=== PATIENT | male | born 1935 | race Caucasian/White ===

== ENCOUNTER 2023-12-03 17:12 | Inpatient (IN) | payer OTHER, SELFPAY ==
[2023-12-03] VITALS (15 sets, daily range): BP systolic 94–154; BP diastolic 60–86; BMI 22.6
[2023-12-03 13:49] LABS: % Basophils 0.4 % (0-2); % Eosinophils 0.9 % (0-6); % Immature Granulocytes 0.4 % (0-0.5); % Lymphocytes 12.1 % (20.5-51.1); % Monocytes 7.4 % (1.7-9.3); % Neutrophils 78.8 % (42.2-75.2); Absolute Eosinophils 0.1 10^3/uL (0-0.7); Absolute Lymphocytes 1.2 10^3/uL (1.2-3.4); Absolute Monocytes 0.8 10^3/uL (0.1-0.6); Absolute Neutrophils 8.1 10^3/uL (1.4-6.5); Hematocrit 43.4 % (39.0-52.0); Hemoglobin 14.5 g/dL (13.0-18.0); Mean Corp Hgb Conc. 33.4 g/dL (33.0-37.0); Mean Corpuscular Hgb 32.9 pg (27.0-31.0); Mean Corpuscular Volume 98.4 fL (80.0-94.0); Mean Platelet Volume 11.5 fL (7.4-10.4); Nucleated Red Blood Cells % 0 % (-); Platelet Count 197 10^3/uL (130-400); Red Blood Cell Count 4.41 10^6/uL (4.70-6.10); Red Cell Dist. Width 14.6 % (11.5-14.5); White Blood Cell Count 10.3 10^3/uL (4.8-10.8)
[2023-12-03 14:05] LABS: ALT (SGPT) 18 U/L (0-50); AST (SGOT) 27 U/L (17-59); Albumin 3.9 g/dl (3.5-5.0); Alkaline Phosphatase 101 U/L (38-126); Blood Urea Nitrogen 21 mg/dl (9-20); Carbon Dioxide 28 mmol/L (22-30); Chloride 105 mmol/L (98-107); Glucose 100 mg/dl (70-99); Sodium 141 mmol/L (135-145); Total Bilirubin 1.7 mg/dl (0.2-1.3); Total Protein 7.1 g/dl (6.3-8.2); eGFR > 60.00
[2023-12-03 14:12] LABS: Troponin I 0.018 ng/ml
--- NOTE | 2023-12-03 14:44 | ED.GENMED ---
Addendum entered and electronically signed by Ramírez Yanez DO 12/03/23 17:29:
Update message from radiology positive PE suspect that explains he is showing of pneumonia on his x-ray despite infectious symptoms, reviewed with hospitalist and cardiology will start on unfractionated heparin check Dopplers
Original Note:
History of Present Illness
General
Chief Complaint: Chest Pain
Source: patient and spouse
Exam Limitations: none
Time Seen by Provider: 12/03/23 14:06
Nursing documentation reviewed up to this point in time: agreed with
History of Present Illness
History of Present Illness:
88-year-old male presents with chest pain described as a cramp woke him up from his sleep early in the morning he had nightmares through the night pain continues not to the back or arm, history of pacemaker and Watchman procedure [place] never been
to [place] before, unclear if he is ever had stents before, no fever or chills
Past History
Past History
ED Past Medical History: Arrthythmia and HTN
ED Past Surgical History: Cardiac (Watchman)
Social History
Tobacco: Non-smoker
Alcohol: None
Drug: None
Personal:
Living: with family
Employment: Retired
Review of Systems
Review of Systems
All Other Systems: Not applicable
Constitutional: Denies fever or fatigue
EENT: Reports no symptoms
Respiratory: Reports trouble breathing
Cardiac: Reports chest pain
Phy Exam
Physical Exam
Physical Exam:
Physical Exam
General: no apparent distress, not acutely ill
Neck: No jaundice
Heart: s1/s2 regular rate and rhythm, no murmur. equal radial pulses.
Lungs: no acute respiratory distress. clear bilaterally
Abdomen: Nontender
Neuro: alert and oriented. no focal neurological deficits
Skin: no rash
Psychiatric: well kept. interactive and cooperative
Extremities: Trace edema
Scores
Heart Score for Chest Pain Patients
STEMI patient?: No
History: Moderately Suspicious
ECG: Significant ST-Depression
Age: >/= 65 years
Risk Factors: >/= 3 Risk Factors or History of CAD
Troponin: </= Normal Limit
Heart Score for Chest Pain Patients: 7
Heart Score Risk: 72.7 % MACE over next 6 weeks
Course
Orders/Labs/Results
Orders:
Orders
12/03/23 13:18
Electrocardiogram (*1) Urgent
Reason for Study: Chest Pain
EKG- Treatment ONCE
12/03/23 13:39
Complete Blood Count/With Diff Urgent
Comprehensive Metabolic Panel Urgent
Troponin I Urgent
12/03/23 14:12
Aspirin 325 mg PO NOW STA
Nitroglycerin Sublingual [Nitrostat (Sublingual)] 0.4 mg SL [id number] PRN
CR Chest Portable - 1 View Urgent
Comment:
Reason For Exam: cp
Reason Study Needs to be Portable: Unable to Transport
12/03/23 14:28
CT Chest Pe Study Urgent
Comment:
Reason For Exam: sob cp
12/03/23 15:48
CefTRIAXone [Rocephin] 1,000 mg IV NOW STA
Abnormal Lab Results
12/03/23
13:39
RBC 4.41 L 10^6/uL
(4.70-6.10)
MCV 98.4 H fL
(80.0-94.0)
MCH 32.9 H pg
(27.0-31.0)
RDW 14.6 H %
(11.5-14.5)
MPV 11.5 H fL
(7.4-10.4)
Absolute Neuts (auto) 8.1 H 10^3/uL
(1.4-6.5)
Absolute Monos (auto) 0.8 H 10^3/uL
(0.1-0.6)
Neutrophils % 78.8 H %
(42.2-75.2)
Lymphocytes % 12.1 L %
(20.5-51.1)
BUN 21 H mg/dl
(9-20)
Glucose 100 H mg/dl
(70-99)
Total Bilirubin 1.7 H mg/dl
(0.2-1.3)
12/03/23 13:39
12/03/23 13:39
Vital Signs
Initial and Last Documented VS:
Initial Vital Signs
Temp Pulse Resp BP Pulse Ox
98.4 F 87 16 121/76 98
12/03/23 13:25 12/03/23 13:25 12/03/23 13:25 12/03/23 13:25 12/03/23 13:25
Last Documented Vital Signs
Temp Pulse Resp BP Pulse Ox
98.4 F 74 29 106/64 96
12/03/23 13:25 12/03/23 15:15 12/03/23 15:15 12/03/23 15:15 12/03/23 15:15
MDM/Problems Addressed
Differential Diagnosis Includes:
ACS PE dissection pneumonia
MDM/Problems Addressed:
Chest pain
Chronic conditions affecting care: Arrhythmia
Acute Exacerbation and/or Progression of Chronic Illness: Arrhythmia
*Radiology
Radiology exam reviewed: preliminary read by ED provider
*Pulse Oximetry
Patient hypoxic: no
*EKG
Interpreted by ED Provider?: Yes
Interpretation: abnormal
Comparison EKG: no comparison EKG present
Heart Rate: 78
Rate: normal
Rhythm: sinus
Ischemia: ST depression
*Health Data Analyst Interpretation
Rate: normal
Interpretation: normal
Heart Rate: 78
Rhythm: sinus
*Critical Care Note
Total Time (30-74mins, 75-104mins- exclusive of procedures): 30
Update Note
Update Note:
Update, patient apparently with a complex cardiac history based upon limited history available and meds, have requested prior records from outside hospitals EKG is concerning, no old EKG in our system will check troponin given aspirin sublingual
nitro consideration for CT scan to rule out PE or dissection
Update, x-ray noted prior records from [place] noted has severe believe will be prudent to admit him
ED Attending Note
-
Portions of this chart may have been created with voice recognition software.� Occasional wrong word or��sound alike� substitutions may have occurred due to the inherent limitations of voice recognition software.
Discharge Plan
Departure
Patient Disposition: Admit
Date of Disposition: 12/03/23
Time of Disposition: 16:03
Admit to: Telemetry
Presentation/result/management discussed w/ accepting MD/DO: Hospitalist
Patient with high blood pressure during this ER visit?: No
Condition: Fair
Covid-19: Not Applicable
Discharge Problem:
Chest pain
Referrals:
Rosa Lieberman, DO [Family Provider] -
Interventions
Interventions:
*Risk Screen - Suicide Last Done: 12/03/23 15:04
*General Assessment Last Done: 12/03/23 15:04
*Neglect/Abuse Screening Last Done: 12/03/23 15:04
ED- Cardiac Assessment Last Done: 12/03/23 15:04
Discharge Date and Time
Print Language: DANISH
[2023-12-03] MEDS: NITROSTAT (SUBLINGUAL) 0.4 MG SL (14:54)
[2023-12-03] MEDS: ASPIRIN 325 MG PO (14:54)
--- NOTE | 2023-12-03 15:48 | CON.CAR ---
Addendum entered and electronically signed by Fernando Cervantes MD 12/03/23 18:48:
I saw and examined the patient.
The Panel Machine Operator's note was reviewed and I agree with the note.
Comment:
GEN: No distress, awake, Ox3
HEENT: supple, anicteric, mmm
LUNGS: scatt rhonchi
CV: Reg, S1/S2, 1/6 syst LSB, no gallop
ABD: soft, BS+, NT/ND
EXT: No edema
NEURO: Gross non-focal
SKIN: No rash
Plan:
He is a complex 88-year-old male followed by an outside cardiology with past medical history of permanent A-fib, watchman, pacemaker, coronary artery disease, stroke and severe aortic stenosis presents today to [facility] with chest pains.
He is elderly and frail but states he had severe pain last night which was 8-9 out of 10. He was treated with sublingual nitroglycerin with no significant improvement. Did have some mild shortness of breath. Cardiac troponin was normal. CT scan
of the chest revealed acute on chronic right lower lobe pulmonary embolism suggestive of right heart strain with small right pleural effusion and small pericardial effusion. He states he has been followed for his valve but this was treated
conservatively in the past.
Will start IV heparin for pulmonary embolism. Continue to trend troponins.
Will check echocardiogram to evaluate LV and RV function and aortic valve.
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 Will start IV Lasix. 40 mg IV daily to avoid hypotension.
Will need to obtain all records from Dr Ovalle's team's office regarding previous echocardiogram, EKGs, and cardiac caths.
He is unaware of any history of bleeding with his watchman.
Check lipids
Original Note:
Consultation
Consultation Request
Date/Time Consultation Performed: 12/03/23
Requesting Provider: Dr. Yanez
Performing Provider: Juanita Sanon PA-C for Dr. Grzywacz
Reason for Consultation: CP
Medical History
-
Chief Complaint: CP
History of Present Illness:
Patient is an 88 yo M with PMH of permanent atrial fibrillation, watchman placement, CAD with prior stent but no prior [place], [employer]tr[employer] PPM, CVAs 2016, 2017, severe who presented to with complaints of CP. He is a poor historian. He reports he had
bad dreams, was playing soccer, and woke up with the pain. He reports the pain kept him from sleep and he had pain all night. He also reports associated SOB. He states the pain is still there presently, but then told the ER physician his pain is
improved. He did receive SL nitro x1 in ER and he denies noting significant improvement with this. He follows with Dr. Christiansen of [facility]. He states he typically goes to [place] or [facility] for his urgent care,
however family brought him here today. EKG abnormal without prior to compare. He denies history of bleeding issues and states his watchman was put in so he could stop his OAC. He states he typically walks with walker or cane at home. Feels that over
the last 6 months he has been more sedentary and unable to complete prior levels of activity. Trop 0.018. CXR read as PNA. Denies fevers, chills, cough. He is unsure if he was ever told he has weakened heart muscle but appears by prior echo EF
preserved. He believes he was previously told about a heart valve problem but that his atomizer assembler was going to monitor it. When asked, he states he is a full code.
PMH:
Permanent atrial fibrillation
History of watchman placement
CAD with prior stent but no prior OH per patient
History of Medtronic pacemaker
History of CVA in 2016, 2017
Severe
BPH
Hypothyroidism
Hyperlipidemia
GERD
Cataract surgery
Ambulatory dysfunction, uses cane/walker at baseline
Past Medical History
Past Medical History: Other (in HPI)
Social History
Personal:
Living: With Family
Employment: Retired
Allergies / Home Medications
Allergy/AdvReac Type Severity Reaction Status Date / Time
acetaminophen [From Percocet] Allergy Unknown Verified 12/03/23 13:33
levothyroxine Allergy Unknown Verified 12/03/23 13:33
oxycodone [From Percocet] Allergy Unknown Verified 12/03/23 13:33
vancomycin Allergy Unknown Verified 12/03/23 13:33
Review of Systems
-
History Source: Patient and Family
All other systems: Negative unless noted
Physical Exam
Vital Signs
Temp Pulse Resp BP Pulse Ox
98.4 F 74 29 106/64 96
12/03/23 13:25 12/03/23 15:15 12/03/23 15:15 12/03/23 15:15 12/03/23 15:15
Lab Results
12/03/23 13:39
12/03/23 13:39
Troponin I 0.018 ng/ml 12/03/23 13:39
Physical Exam
General: No Apparent Distress and Other (frail appearing)
HEENT: Normocephalic, Anicteric and Moist Mucous Membranes
Respiratory: Non Labored Respirations
Cardiac: S1/S2, Irregular Rhythm and Murmur
GI: Soft, Non Tender, Non Distended and Normal Bowel Sounds
Musculoskeletal: No Clubbing, No Cyanosis and Edema (trace edema of B/L ankles)
Skin: Warm and Dry
Neuro: AO x 3 (but poor historian)
Impression / Plan
-
Primary Kelp Gatherer: Dr. Christiansen of [facility]
Assessment:
Presentation with CP
Initial trop detectable but WNL
Abnormal EKG
Severe
Permanent atrial fibrillation
History of watchman placement
CAD with prior stent but no prior OH per patient
History of Medtronic pacemaker
History of CVA in 2016, 2017
BPH
Hypothyroidism
Hyperlipidemia
GERD
Cataract surgery
Ambulatory dysfunction, uses cane/walker at baseline
ECHO at OSH: preserved EF and severe
Plan:
-Patient presents to [facility] with complaints of chest pain
-EKG abnormal with lateral ST depression, inferior T wave inversion. None prior to compare. Follow
-Initial troponin 0.018. Trend
-Unclear if this point if his chest pain is secondary to ischemia, severe aortic stenosis, or noncardiac etiology
-for chest CTA to rule out PE
-Attempted to obtain records from patient's primary atomizer assembler, however office presently closed.
-Would repeat echo here
-Chest x-ray read as pneumonia, however no infectious features. Check proBNP, and procal. he is on daily Lasix as an outpatient
-Interrogate device by [employer] in ER. in vpaced rhythm, underlying afib with PVCs. on digoxin and diltiazem as OP.
-dig level pending
-continue asa, statin
-Discussed with patient and at bedside. Discussed with ER physician, hospitalist
Data Reviewed
-
EKG: Tracing Personally Visualized and interpreted
Radiology: Report Reviewed by me
Medical Tests (Nuc Med, Echo etc): Report Reviewed by me
Labs: Labs Reviewed by me
Old Records: Requested and Reviewed
--- NOTE | 2023-12-03 17:01 | HPS.HSE ---
Family Physician
-
Family Physician: Rosa Lieberman
Chief Complaint
-
Chest pain.
History of Present Illness
Patient is a 88-year-old male with extensive history of cardiovascular comorbidities including permanent atrial fibrillation status post watchman, coronary artery disease with stent, sick sinus syndrome with pacemaker in place, CVA, severe aortic
stenosis who presents to the emergency room with acute onset of chest pain. Patient states that pain woke him up. He complains of midsternal chest pain which was not reproducible on my exam. He denies any fever and chills, cough. Pain is not
exertional. He denies any syncope. He states that for over the last 3 to 6 months he is getting progressively shortness of breath with decreasing activity tolerance.
While in emergency room patient found to be hemodynamically stable with stable respiratory status. He was treated with sublingual nitroglycerin and had no significant improvement of pain.
Additional workup showed unremarkable cardiac markers, chest x-ray with questionable right lower lobe infiltrate, although patient has no clinical symptoms suggesting of respiratory infection or pneumonia.
His EKG showed ST-T abnormalities with no prior EKG to compare.
Medical History
Past Medical History
Past Medical History: Reports Arrhythmia (A-fib), CAD and HTN
Past Surgical History: Reports Other (Cardiac)
Social History
Tobacco: Non-smoker
Personal:
Living: With Family
Employment: Retired
Family History
Family History: Not pertinent
Allergies / Home Medications
Allergies reflects when Allergies were last updated in [facility].
Home Medications with original date entered in [facility]
Allergy/Medication List:
Pending reconciliation
Review of Systems
-
A 12 point ROS was completed and negative except as noted: Yes
Physical Exam
Vital Signs
Vital Signs
Temp Pulse Resp BP Pulse Ox
98.4 F 74 29 106/64 96
12/03/23 13:25 07/12/24 15:15 12/03/23 15:15 12/03/23 15:15 12/03/23 15:15
Physical Exam
General: Well Developed, Well Nourished and No Apparent Distress
HEENT: NormoCephalic, Moist mucous membranes and Atraumatic
Respiratory: Clear
Cardiac: S1/S2, Regular Rhythm and Murmur (Systolic 3/4 out of 6); No Rub
GI: Soft, Non Tender, Non Distended and Normal Bowel Sounds; No Organomegaly
Rectal: Deferred by Provider
Musculoskeletal: No Clubbing, No Cyanosis and No Edema
Skin: No Rash
Neuro: Nonfocal/grossly intact
Laboratory Results
-
12/03/23 13:39
12/03/23 13:39
Laboratory Results
Total Bilirubin 1.7 mg/dl (0.2-1.3) H 12/03/23 13:39
AST 27 U/L (17-59) 12/03/23 13:39
ALT 18 U/L (0-50) 12/03/23 13:39
Alkaline Phosphatase 101 U/L (38-126) 12/03/23 13:39
Troponin I 0.018 ng/ml 12/03/23 13:39
Impression/Plan
-
IMPRESSION:
Presentation with chest pain.
Abnormal EKG
Conditions prior to admission:
Severe aortic stenosis
�Outpatient echocardiogram with preserved EF and severe AAS.
Permanent atrial fibrillation
� Status post watchman.
Coronary artery disease with prior history of stent.
PPM in place.
History of CVA in
BPH
Hypothyroidism on replacement
Dyslipidemia
GERD
Chronic ambulatory dysfunction
PLAN:
Presentation with chest pain
? Less likely acute coronary syndrome versus progressive aortic stenosis related
ECG with abnormal ST and T waves with no prior EKG for comparison.
Unremarkable first set of cardiac markers/troponin pending CHF BNP.
Chest x-ray with questionable right lower lobe infiltrate, although no clinical symptoms of respiratory infection pending procalcitonin level.
CT scan of the chest PE protocol pending.
Trend cardiac markers
Repeat echocardiogram
Cardiology consultation
Interrogate pacemaker
Check dig level.
Continue preadmission cardiovascular regimen.
Continue aspirin and statin.
Full code
--- NOTE | 2023-12-03 17:15 | W.PN.UPDATE ---
Update Note
Progress Note Update
CT scan of the chest with findings of probable acute on chronic partially occlusive right lower lobe pulmonary embolism. Findings suggestive of right heart strain
Small right pleural effusion. Small pericardial effusion
Plan is to start unfractionated heparin drip
Will check lower extremity Doppler.
Follow-up echocardiogram.
[2023-12-03 17:17] LABS: Digoxin 1.1 ng/ml (0.8-2.0)
[2023-12-03 17:45] LABS: NT-proBNP 7340 pg/ml
[2023-12-03 18:39] LABS: APTT 28.6 Sec (23.4-35.0)
[2023-12-03] MEDS: HEPARIN 25000 UNITS/250 ML IV (18:39)
[2023-12-03] MEDS: HEPARIN 5600 UNITS IV (18:41)
[2023-12-03 20:46] LABS: Procalcitonin < 0.05 ng/ml (0.0-0.25)
[2023-12-03 20:55] LABS: Troponin I 0.021 ng/ml
[2023-12-03 21:06] LABS: APTT > 200 Sec (23.4-35.0)
[2023-12-03] MEDS: CARDIZEM CD PO (23:25)
[2023-12-03] MEDS: PROSCAR PO (23:26)
[2023-12-03] MEDS: LASIX PO (23:26)
[2023-12-04] MEDS: LIPITOR 20 MG PO ×2 (00:13→18:47)
[2023-12-04] MEDS: FLOMAX 0.4 MG PO ×2 (00:14→21:59)
[2023-12-04 01:11] VITALS: BMI 22.6
[2023-12-04 01:32] LABS: APTT > 200 Sec (23.4-35.0)
[2023-12-04 03:47] VITALS: BP 134/77
--- NOTE | 2023-12-04 03:59 | PTCARENOTE ---
Pt arrived to floor from ED via stretcher with at bedside approximately 1930. Heparin gtt running at 13ml/her. VSS, pt placed on [place]. Package Concierge rec complete. Will review chart and follow plan of care. Pt had additionally PTT drawn with 2nd contreras upon
arrival to floor, about an hour after Heparin bolus and heparin gtt initiation resulting in APTT of >200. HEALTH EQUIPMENT SERVICER made aware. Advised to continue heparin GTT and redraw PTT 6 hours after initiation. 0030 PTT again >200. HEALTH EQUIPMENT SERVICER aware, gtt held for 2 hour
and restarted at 0330 at 10ml/hr. Next PTT due to be drawn at 0930.
[2023-12-04 05:04] LABS: Troponin I 0.036 ng/ml
[2023-12-04 06:00] VITALS: BMI 21.5
[2023-12-04] MEDS: SYNTHROID 100 MCG PO (06:30)
[2023-12-04 07:00] VITALS: BP 112/74
--- NOTE | 2023-12-04 09:02 | W.PN.CARDCBS ---
Today's Communication / Plan
-
CT scan of the chest with findings of probable acute on chronic partially occlusive right lower lobe pulmonary embolism. Findings suggestive of right heart strain with small right pleural effusion. Small pericardial effusion
-Cont IV Heparin
-echo pending.
-LE doppler neg for PE
Trend troponin until peaks, trop likely secondary to PE. Trop 0.036. Cont medical therapy of nonMI trop.
EKG abnormal without comparison. Await records
-Cont ASA and statin.
pBNP was 7340. Cont outpt oral lasix
Interrogate device by [employer] in ER, in Vpaced rhythm, underlying Afib with PVCs. Cont Digoxin and diltiazem as OP.
-Dig level 1.1
Impression / Plan
-
Primary Student Affairs Dean: Dr. Christiansen of [facility]
Impression:
Presentation with CP
Probable acute on chronic partially occlusive right lower lobe pulmonary embolism by CT
Likely NonMI troponin elevation
Abnormal EKG
Severe
Permanent atrial fibrillation
History of Watchman placement
CAD with prior stent but no prior [place] per patient
History of Medtronic pacemaker
History of CVA in 2016, 2017
BPH
Hypothyroidism
Hyperlipidemia
GERD
Cataract surgery
Ambulatory dysfunction, uses cane/walker at baseline
ECHO at OSH: preserved EF and severe
Plan:
-Patient presented to [facility] with complaints of chest pain. EKG abnormal with lateral ST depression, inferior T wave inversion.
CT scan of the chest with findings of probable acute on chronic partially occlusive right lower lobe pulmonary embolism. Findings suggestive of right heart strain with small right pleural effusion. Small pericardial effusion
-Cont IV Heparin
-echo pending.
-LE doppler neg for PE
Trend troponin until peaks, trop likely secondary to PE. Trop 0.036. Cont medical therapy of nonMI trop.
EKG abnormal without comparison. Await records
-Cont ASA and statin.
pBNP was 7340. Cont outpt oral lasix
Interrogate device by [facility] in ER, in Vpaced rhythm, underlying Afib with PVCs. Cont Digoxin and diltiazem as OP.
-Dig level 1.1
Progress Note - Student Affairs Dean
Subjective
Date of Service: December 04, 2023
Pt seen and examined. No complaints. No chest pain or shortness of breath.
Objective
Labs:
Labs
Hgb 14.5 g/dL (13.0-18.0) 12/03/23 13:39
Hct 43.4 % (39.0-52.0) 12/03/23 13:39
Plt Count 197 10^3/uL (130-400) 12/03/23 13:39
APTT > 200 Sec (23.4-35.0) H* 12/04/23 00:48
Sodium 141 mmol/L (135-145) 12/03/23 13:39
Potassium 4.0 mmol/L (3.5-5.1) 12/03/23 13:39
BUN 21 mg/dl (9-20) H 12/03/23 13:39
Creatinine 0.8 mg/dL (0.7-1.3) 12/03/23 13:39
Glucose 100 mg/dl (70-99) H 12/03/23 13:39
Digoxin 1.1 ng/ml (0.8-2.0) 12/03/23 13:39
Troponins
12/03/23 12/03/23 12/04/23
13:39 19:57 03:45
Troponin I 0.018 0.021 0.036 H* D
Vital Signs and I&O:
Vital Signs
Temp Pulse Resp BP Pulse Ox
97.4 F 97 20 112/74 96
12/04/23 07:00 12/04/23 07:00 12/04/23 07:00 12/04/23 07:00 12/04/23 07:00
Vital Signs
Temp Pulse Resp BP Pulse Ox
97.4 F 97 20 112/74 96
12/04/23 07:00 12/04/23 07:00 12/04/23 07:00 12/04/23 07:00 12/04/23 07:00
Intake & Output
12/02/23 12/03/23 12/04/23 12/05/23
06:59 06:59 06:59 06:59
Output Total 400 / 400
Balance -400 / -400
Physical Exam
Physical Exam
General: No acute distress, AAOX3
Neck: Negative JVD
Heart: Regular, Negative S3 positive S1/S2, Negative S4, No murmur
Lungs: CTA b/l, negative wheezes/rales/rhonchi
Abd: Positive BS, NT/ND, neg rebound/rigidity/guarding
Ext: Negative cyanosis/clubbing/edema
Neuro: nonfocal
[2023-12-04] MEDS: LOW STRENGTH ASPIRIN 81 MG PO (09:14)
[2023-12-04] MEDS: KCL 20 MEQ PO (09:14)
[2023-12-04] MEDS: PROTONIX 40 MG PO (09:14)
[2023-12-04] MEDS: CARDIZEM CD 300 MG PO (09:14)
[2023-12-04] MEDS: PROSCAR 5 MG PO (09:14)
[2023-12-04] MEDS: LASIX 20 MG PO (09:15)
[2023-12-04 09:29] LABS: Blood Urea Nitrogen 20 mg/dl (9-20); Calcium 8.8 mg/dl (8.4-10.2); Carbon Dioxide 30 mmol/L (22-30); Chloride 106 mmol/L (98-107); Estimated Creatinine Clearance 62 ml/min; Glucose 92 mg/dl (70-99); Potassium 4.3 mmol/L (3.5-5.1); Sodium 142 mmol/L (135-145); eGFR > 60.00
[2023-12-04 09:30] LABS: % Basophils 0.4 % (0-2); % Eosinophils 0.4 % (0-6); % Immature Granulocytes 0.5 % (0-0.5); % Lymphocytes 12.1 % (20.5-51.1); % Monocytes 7.9 % (1.7-9.3); % Neutrophils 78.7 % (42.2-75.2); Absolute Monocytes 0.7 10^3/uL (0.1-0.6); Absolute Neutrophils 6.8 10^3/uL (1.4-6.5); Hematocrit 38.3 % (39.0-52.0); Hemoglobin 13.1 g/dL (13.0-18.0); Mean Corp Hgb Conc. 34.2 g/dL (33.0-37.0); Mean Corpuscular Hgb 32.8 pg (27.0-31.0); Mean Corpuscular Volume 95.8 fL (80.0-94.0); Mean Platelet Volume 11.9 fL (7.4-10.4); Nucleated Red Blood Cells % 0 % (-); Platelet Count 190 10^3/uL (130-400); Red Cell Dist. Width 14.5 % (11.5-14.5); White Blood Cell Count 8.6 10^3/uL (4.8-10.8)
[2023-12-04 10:18] LABS: APTT 31.3 Sec (23.4-35.0)
[2023-12-04 11:00] VITALS: BP 106/64
[2023-12-04] MEDS: LANOXIN 125 MCG PO (11:16)
[2023-12-04 11:57] LABS: Troponin I 0.032 ng/ml
[2023-12-04 12:13] VITALS: BMI 21.5
--- NOTE | 2023-12-04 14:32 | W.PN.HOSP.TC ---
Today's Communication/Plan
-
Continue IV heparin.
Assessment / Plan
Assessment / Plan
Impression:
Presentation with acute onset of chest pain.
Pulmonary embolism.
Conditions prior to admission:
Severe aortic stenosis
�Outpatient echocardiogram with preserved EF and severe AAS.
Permanent atrial fibrillation
� Status post watchman.
Coronary artery disease with prior history of stent.
PPM in place.
History of CVA in
BPH
Hypothyroidism on replacement
Dyslipidemia
GERD
Chronic ambulatory dysfunction
Plan:
Acute PE.
CT with acute on chronic partially occlusive right lower lobar pulmonary embolism. Suggestion of right heart strain. Small right pleural effusion. Small paracardial effusion.
Remains hemodynamically stable with stable respiratory status since admission.
PESI 106 class IV high risk
Echo pending
Elevated troponin peaked at 0.036, BNP 7340
Lower extremity Doppler negative for DVT.
Chest pain resolved with initiation of anticoagulation
Continue heparin for another 24 hours.
Plan is to transition to Eliquis on Xarelto depends on pricing on 12/04.
Home O2 assessment prior to discharge.
Cardiovascular.
Volume status compensated
Pacemaker interrogated this admission.
Continue preadmission regimen including Cardizem, digoxin, Lasix, Lipitor
Anticipated Discharge: 24 - 48 hours
Subjective/Interval History
-
Date of Service: December 04, 2023
Objective Data
-
Labs:
Laboratory Results
12/04/23 12/04/23
08:55 17:00
WBC 8.6
Hgb 13.1
Hct 38.3 L
Plt Count 190
APTT 31.3 Pending
Sodium 142
Potassium 4.3
Chloride 106
Carbon Dioxide 30
BUN 20
Creatinine 0.8
Glucose 92
Calcium 8.8
Vital Signs:
Vital Signs
Temp Pulse Resp BP Pulse Ox
97.9 F 79 16 106/64 94
12/04/23 11:00 12/04/23 11:16 12/04/23 11:00 12/04/23 11:00 12/04/23 11:00
I&O
12/03/23 12/04/23 12/05/23
06:59 06:59 06:59
Output Total 400 / 400
Balance -400 / -400
Physical Exam
-
General: Well Developed and No Apparent Distress
HEENT: Normocephalic, Atraumatic and Moist Mucous Membranes
Respiratory: Clear to Auscultation
Cardiac: Regular Rhythm and S1/S2; Negative Murmur, Rub or Gallop
GI: Soft, Nontender, Nondistended and Normal Bowel Sounds; Negative Organomegaly
Rectal: Deferred by Provider
Musculoskeletal: No Clubbing, No Cyanosis and No Edema
Skin: Negative Rash
Neuro: Nonfocal/Grossly Intact
[2023-12-04 15:00] VITALS: BP 116/67
[2023-12-04 17:21] LABS: APTT 235.1 Sec (23.4-35.0)
[2023-12-04 19:39] VITALS: BP 128/70
[2023-12-05 01:36] VITALS: BP 127/76
[2023-12-05] MEDS: HEPARIN 25000 UNITS/250 ML IV (01:46)
[2023-12-05 02:02] LABS: APTT 82.1 Sec (23.4-35.0)
[2023-12-05] MEDS: SYNTHROID 100 MCG PO (05:44)
[2023-12-05 06:00] VITALS: BMI 21.4
[2023-12-05 07:25] VITALS: BP 140/83
[2023-12-05] MEDS: PROSCAR 5 MG PO (09:56)
[2023-12-05] MEDS: LASIX 20 MG PO (09:56)
[2023-12-05] MEDS: PROTONIX 40 MG PO (09:56)
[2023-12-05] MEDS: LOW STRENGTH ASPIRIN 81 MG PO (09:57)
[2023-12-05] MEDS: KCL 20 MEQ PO (09:57)
[2023-12-05] MEDS: CARDIZEM CD 300 MG PO (09:57)
[2023-12-05 11:05] VITALS: BP 105/68
[2023-12-05 12:24] LABS: APTT 71.9 Sec (23.4-35.0)
[2023-12-05] MEDS: HEPARIN 2800 UNITS IV (12:35)
[2023-12-05] MEDS: LANOXIN 125 MCG PO (12:43)
--- NOTE | 2023-12-05 13:10 | CM ---
Addendum entered by Serenity Monson 12/05/23 13:26:
Contacted patient's pharmacy for Cost of Eliquis 5 mg, BID $47.00 for 30 day supply.
Attending notified and acknowledged tiger text
Original Note:
Met with patient and his at bedside; Initial Assessment and Case Management consult completed
Pharmacy verified: [facility], [address] [place] [address] #[phone]
Patient and spouse live in a one floor in-law suite attached to son's home; bathroom has stall shower, grab bars, seat, raised toilet
Patient is independent with ADLs; ambulates with cane inside; RW outside; does not drive
NO SNF or Home Health History
Advance Directive packet offered and declined
Transportation: will transport home via car
Plan: discharge to home tomorrow on Eliquis
--- NOTE | 2023-12-05 13:54 | W.PN.CARDCBS ---
Today's Communication / Plan
-
Troponins remain flat. Okay to transition to Eliquis or Xarelto.
If remains in hospital we will check echo in a.m.
Would also be reasonable to discharge patient have a follow-up with outpatient van helper.
Impression / Plan
-
Primary Clay Molder: Dr. Christiansen of [facility]
Impression:
Presentation with CP
Probable acute on chronic partially occlusive right lower lobe pulmonary embolism by CT
Likely NonMI troponin elevation
Abnormal EKG
Severe
Permanent atrial fibrillation
History of Watchman placement
CAD with prior stent but no prior [place] per patient
History of Medtronic pacemaker
History of CVA in 2016, 2017
BPH
Hypothyroidism
Hyperlipidemia
GERD
Cataract surgery
Ambulatory dysfunction, uses cane/walker at baseline
ECHO at OSH: preserved EF and severe
Plan:
-Patient presented to [facility] with complaints of chest pain. EKG abnormal with lateral ST depression, inferior T wave inversion.
CT scan of the chest with findings of probable acute on chronic partially occlusive right lower lobe pulmonary embolism. Findings suggestive of right heart strain with small right pleural effusion. Small pericardial effusion
-Okay to transition to Eliquis or Xarelto from cardiac standpoint.
-Will check echocardiogram in a.m. if still in hospital. This can also be done as outpatient. I again discussed with him that he is to decide where he would like his cardiovascular care.
Trop likely secondary to PE. Trop 0.036. Cont medical therapy of nonMI trop.
EKG abnormal without comparison. Await records
-Cont ASA and statin.
pBNP was 7340. Cont outpt oral lasix
Interrogate device by CNZZ in ER, in Vpaced rhythm, underlying Afib with PVCs. Cont Digoxin and diltiazem as OP.
-Dig level 1.1
Progress Note - Clay Molder
Subjective
Date of Service: December 05, 2023
Denies chest pains or shortness of breath.
Objective
Labs:
12/04/23 08:55
12/04/23 08:55
Labs
Hgb 13.1 g/dL (13.0-18.0) 12/04/23 08:55
Hct 38.3 % (39.0-52.0) L 12/04/23 08:55
Plt Count 190 10^3/uL (130-400) 12/04/23 08:55
APTT 71.9 Sec (23.4-35.0) H 12/05/23 10:48
Sodium 142 mmol/L (135-145) 12/04/23 08:55
Potassium 4.3 mmol/L (3.5-5.1) 12/04/23 08:55
BUN 20 mg/dl (9-20) 12/04/23 08:55
Creatinine 0.8 mg/dL (0.7-1.3) 12/04/23 08:55
Glucose 92 mg/dl (70-99) 12/04/23 08:55
Digoxin 1.1 ng/ml (0.8-2.0) 12/03/23 13:39
Troponins
12/03/23 12/03/23 12/04/23
13:39 19:57 03:45
Troponin I 0.018 0.021 0.036 H* D
12/04/23
11:19
Troponin I 0.032
Vital Signs and I&O:
Vital Signs
Temp Pulse Resp BP Pulse Ox
97.2 F 82 18 105/68 98
12/05/23 11:05 12/05/23 12:43 12/05/23 11:05 12/05/23 11:05 12/05/23 11:05
Vital Signs
Temp Pulse Resp BP Pulse Ox
97.2 F 82 18 105/68 98
12/05/23 11:05 12/05/23 12:43 12/05/23 11:05 12/05/23 11:05 12/05/23 11:05
Intake & Output
12/03/23 12/04/23 12/05/23 12/06/23
06:59 06:59 06:59 06:59
Intake Total 880 / 880
Output Total 400 / 400 650 / 650
Balance -400 / -400 230 / 230
Physical Exam
Physical Exam
GEN: No distress, awake, Ox3
HEENT: supple, anicteric, mmm
LUNGS: CTA, no wheezes/rales
CV: Reg, S1/S2, 2/6 syst LSB, no gallop
ABD: soft, BS+, NT/ND
EXT: No edema
NEURO: Gross non-focal
SKIN: No rash
--- NOTE | 2023-12-05 14:07 | W.PN.HOSP.TC ---
Today's Communication/Plan
-
TTE ordered
eliquis copay acceptable, will switch from evening
Assessment / Plan
Assessment / Plan
Chest PE:
1. 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 Findings suggesting right heart strain.
2. Small right pleural effusion. Small pericardial effusion.

Impression:
Submassive Pulmonary embolism
Conditions prior to admission:
Severe aortic stenosis
�Outpatient echocardiogram with preserved EF and severe AAS.
Permanent atrial fibrillation
� Status post watchman.
Coronary artery disease with prior history of stent.
PPM in place.
History of CVA in
BPH
Hypothyroidism on replacement
Dyslipidemia
GERD
Chronic ambulatory dysfunction
Plan:
Acute PE.
CT with acute on chronic partially occlusive right lower lobar pulmonary embolism. Suggestion of right heart strain. Small right pleural effusion. Small paracardial effusion.
Remains hemodynamically stable with stable respiratory status since admission.
PESI 106 class IV high risk
Echo pending
Elevated troponin peaked at 0.036, BNP 7340
Lower extremity Doppler negative for DVT.
Chest pain resolved with initiation of anticoagulation
Continue heparin for another 24 hours.
Plan is to transition to Eliquis on Xarelto depends on pricing on 12/04.
Home O2 assessment prior to discharge.
Cardiovascular.
Volume status compensated
Pacemaker interrogated this admission.
Continue preadmission regimen including Cardizem, digoxin, Lasix, Lipitor
Anticipated Discharge: Within 24 hours
Subjective/Interval History
-
Date of Service: December 05, 2023
no issues overnight
Objective Data
-
Labs:
Laboratory Results
12/05/23 12/05/23
10:48 18:30
APTT 71.9 H Pending
Vital Signs:
Vital Signs
Temp Pulse Resp BP Pulse Ox
97.2 F 82 18 105/68 98
12/05/23 11:05 12/05/23 12:43 12/05/23 11:05 12/05/23 11:05 12/05/23 11:05
I&O
12/04/23 12/05/23 12/06/23
06:59 06:59 06:59
Intake Total 880 / 880
Output Total 400 / 400 650 / 650
Balance -400 / -400 230 / 230
Review of Systems
-
Respiratory: Reports No Symptoms
Cardiac: Reports No Symptoms
Abdomen/GI: Reports No Symptoms
Physical Exam
-
General: No Apparent Distress
HEENT: Moist Mucous Membranes
Respiratory: Clear to Auscultation
Cardiac: Regular Rhythm and S1/S2; Negative Murmur, Rub or Gallop
GI: Soft, Nontender, Nondistended and Normal Bowel Sounds; Negative Organomegaly
Musculoskeletal: No Edema
Skin: Negative Rash
Neuro: Awake, Alert, Oriented and Nonfocal/Grossly Intact
[2023-12-05 15:25] VITALS: BP 107/58
[2023-12-05] MEDS: LIPITOR 20 MG PO (17:07)
--- NOTE | 2023-12-05 17:15 | PTCARENOTE ---
Pt continues on Heparin drip. Denies pain/discomfort. in to visit during shift. Call newsome within reach.
[2023-12-05 19:00] VITALS: BP 117/72
[2023-12-05 19:18] LABS: APTT 235.1 Sec (23.4-35.0)
[2023-12-05] MEDS: FLOMAX 0.4 MG PO (20:50)
--- NOTE | 2023-12-05 20:59 | W.PN.UPDATE ---
Update Note
Progress Note Update
Heparin drip d/c and Eliquis 10mg was ordered BID starting tonight as recommended by the attending physician.
--- NOTE | 2023-12-05 21:13 | PTCARENOTE ---
received critical PTT at change of shift, heparin gtt placed on hold. At approx 2019, order reached end date, SIVAN Herring notified regarding renewal of order/critical PTT. Received electronic order for heparin gtt to be stopped and PO Eliquis to
start. Call newsome within reach
[2023-12-05] MEDS: ELIQUIS 10 MG PO (21:51)
[2023-12-05 23:00] VITALS: BP 126/88
[2023-12-06] VITALS (9 sets, daily range): BP systolic 111–128; BP diastolic 57–79; O2SAT 96; BMI 20.8
[2023-12-06] MEDS: SYNTHROID 100 MCG PO (05:28)
[2023-12-06 06:25] LABS: Hematocrit 35.1 % (39.0-52.0); Hemoglobin 12.2 g/dL (13.0-18.0); Mean Corp Hgb Conc. 34.8 g/dL (33.0-37.0); Mean Corpuscular Hgb 32.7 pg (27.0-31.0); Mean Corpuscular Volume 94.1 fL (80.0-94.0); Platelet Count 179 10^3/uL (130-400); Red Blood Cell Count 3.73 10^6/uL (4.70-6.10); Red Cell Dist. Width 14.2 % (11.5-14.5); White Blood Cell Count 6.3 10^3/uL (4.8-10.8)
[2023-12-06 06:57] LABS: Blood Urea Nitrogen 19 mg/dl (9-20); Calcium 8.4 mg/dl (8.4-10.2); Carbon Dioxide 27 mmol/L (22-30); Chloride 107 mmol/L (98-107); Estimated Creatinine Clearance 60 ml/min; Glucose 78 mg/dl (70-99); Potassium 3.7 mmol/L (3.5-5.1); Sodium 139 mmol/L (135-145); eGFR > 60.00
[2023-12-06] MEDS: PROTONIX 40 MG PO (08:18)
[2023-12-06] MEDS: PROSCAR 5 MG PO (08:19)
[2023-12-06] MEDS: ELIQUIS 10 MG PO ×2 (08:19→19:35)
[2023-12-06] MEDS: KCL 20 MEQ PO (08:19)
[2023-12-06] MEDS: LOW STRENGTH ASPIRIN 81 MG PO (08:19)
[2023-12-06] MEDS: CARDIZEM CD 300 MG PO (08:20)
[2023-12-06] MEDS: LASIX 20 MG PO (08:21)
--- NOTE | 2023-12-06 08:46 | W.PN.CARDCBS ---
Addendum entered and electronically signed by Denisse Cabrales PA-C 12/06/23 11:56:
Called patient's primary engineering program analyst's office to get records, records received and reviewed as below.
-Patient is already scheduled to see Dr. Christiansen on 12/16/23 at 10 AM
-Patient was recently admitted to [facility] for possible acute HF and PNA.
-Echo 08/2023: study performed during hospitalization at [place], normal EF, no WMA, severe with mean gradient 39 mmHg
-Echo 10/12/23: EF 60-65%, mod conc LVH, normal RV size and function, mild to mod MR, moderate to severe with p/m 50/25 mmHg and COLLEEN 1.05 cm sq with mild aortic regurgitation
-Echo from this hospitalization pending 12/06/23
-He has a Medtronic DC PPM in place that is s/p generator change 07/08/23
-CAD with h/o LAD PCI in 2015
Original Note:
Today's Communication / Plan
-
Echo pending
Outpt cadiac follow up with his engineering program analyst.
Impression / Plan
-
Primary Collector: Dr. Christiansen of [facility]
Impression:
Presentation with CP
Probable acute on chronic partially occlusive right lower lobe pulmonary embolism by CT
Likely NonMI troponin elevation
Abnormal EKG
Severe
Permanent atrial fibrillation
History of Watchman placement
CAD with prior stent but no prior [place] per patient
History of Medtronic pacemaker
History of CVA in 2016, 2017
BPH
Hypothyroidism
Hyperlipidemia
GERD
Cataract surgery
Ambulatory dysfunction, uses cane/walker at baseline
ECHO at OSH: preserved EF and severe
Plan:
-Patient presented to [facility] with complaints of chest pain. EKG abnormal with lateral ST depression, inferior T wave inversion.
CT scan of the chest with findings of probable acute on chronic partially occlusive right lower lobe pulmonary embolism. Findings suggestive of right heart strain with small right pleural effusion. Small pericardial effusion
-Pt has been transitioned to Eliquis for PE
-Will check echocardiogram as still in hospital. This pending. He is planning to cont with his outside engineering program analyst to continue his cardiovascular care.
Trop likely secondary to PE and peaked at 0.036. Cont medical therapy of nonMI trop.
EKG abnormal without comparison. Await records
-Cont ASA and statin.
pBNP was 7340. Cont outpt oral lasix
Device: in Vpaced rhythm, underlying Afib with PVCs. Cont Digoxin and diltiazem as OP.
-Dig level 1.1
Outpt follow up with his engineering program analyst
Stable cv status
Please recall if needed.
Progress Note - Collector
Subjective
Date of Service: December 06, 2023
Pt seen and examined. No complaints. No chest pain or shortness of breath.
Objective
Labs:
12/06/23 05:29
12/06/23 05:29
Labs
Hgb 12.2 g/dL (13.0-18.0) L 12/06/23 05:29
Hct 35.1 % (39.0-52.0) L 12/06/23 05:29
Plt Count 179 10^3/uL (130-400) 12/06/23 05:29
APTT 235.1 Sec (23.4-35.0) H* 12/05/23 18:26
Sodium 139 mmol/L (135-145) 12/06/23 05:29
Potassium 3.7 mmol/L (3.5-5.1) 12/06/23 05:29
BUN 19 mg/dl (9-20) 12/06/23 05:29
Creatinine 0.8 mg/dL (0.7-1.3) 12/06/23 05:29
Glucose 78 mg/dl (70-99) 12/06/23 05:29
Digoxin 1.1 ng/ml (0.8-2.0) 12/03/23 13:39
Troponins
12/03/23 12/03/23 12/04/23
13:39 19:57 03:45
Troponin I 0.018 0.021 0.036 H* D
12/04/23
11:19
Troponin I 0.032
Vital Signs and I&O:
Vital Signs
Temp Pulse Resp BP Pulse Ox
97.4 F 75 21 127/79 95
12/06/23 07:00 12/06/23 08:21 12/06/23 07:00 12/06/23 08:21 12/06/23 07:00
Vital Signs
Temp Pulse Resp BP Pulse Ox
97.4 F 75 21 127/79 95
12/06/23 07:00 12/06/23 08:21 12/06/23 07:00 12/06/23 08:21 12/06/23 07:00
Intake & Output
12/04/23 12/05/23 12/06/23 12/07/23
06:59 06:59 06:59 06:59
Intake Total 880 / 880 900 / 900
Output Total 400 / 400 650 / 650 625 / 625
Balance -400 / -400 230 / 230 275 / 275
Physical Exam
Physical Exam
General: No acute distress, frail AAOX3
Neck: Negative JVD
Heart: Regular, Negative S3 positive S1/S2, Negative S4, No murmur
Lungs: CTA b/l, negative wheezes/rales/rhonchi
Abd: Positive BS, NT/ND, neg rebound/rigidity/guarding
Ext: Negative cyanosis/clubbing/edema
Neuro: nonfocal
--- NOTE | 2023-12-06 10:26 | CM ---
Addendum entered by Melodie Georges 12/06/23 11:31:
Patient and his spouse discussed recommendations for skilled and they have refused skilled placement. Per patient's spouse they live in a in-law suite next to son's home, and granddaughter is a nurse and they do not feel that patient would benefit
from rehab.
Original Note:
client support manager reviewed patient's chart and met with patient and discussed patient progress with physical therapy and recommendation is for skilled placement, call placed to patient's spouse to discuss and message left. Patient wants to discuss
skilled options with his spouse before making any decision.
Plan; Possible skilled placement, Patient wants to discuss with spouse. Waiting on possible skilled options from patient and spouse.
[2023-12-06] MEDS: LANOXIN 125 MCG PO (11:38)
--- NOTE | 2023-12-06 12:16 | W.PN.HOSP.TC ---
Today's Communication/Plan
-
Monitor vital signs and see plan
Bladder scan, straight cath
Monitor for bleeding
Continue Eliquis
PT/OT
Echo
Discussed with spouse at bedside
Assessment / Plan
Assessment / Plan
Chest PE:
1. 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 Findings suggesting right heart strain.
2. Small right pleural effusion. Small pericardial effusion.

Impression:
Submassive Pulmonary embolism
Conditions prior to admission:
Severe aortic stenosis
�Outpatient echocardiogram with preserved EF and severe AAS.
Permanent atrial fibrillation
� Status post watchman.
Coronary artery disease with prior history of stent.
PPM in place.
History of CVA in
BPH
Hypothyroidism on replacement
Dyslipidemia
GERD
Chronic ambulatory dysfunction
mild hematuria
Acute urinary retention
Plan:
Acute PE.
CT with acute on chronic partially occlusive right lower lobar pulmonary embolism. Suggestion of right heart strain. Small right pleural effusion. Small paracardial effusion.
Remains hemodynamically stable with stable respiratory status since admission.
PESI 106 class IV high risk
Echo pending
Elevated troponin peaked at 0.036, BNP 7340
Lower extremity Doppler negative for DVT.
Chest pain resolved with initiation of anticoagulation
now started on eliquis
Home O2 assessment prior to discharge.
Now with acute urinary retention//15, status post straight cath. Mild hematuria this morning however on straight catheterization there was no blood. Monitor
Cardiovascular.
Volume status compensated
Pacemaker interrogated this admission.
Continue preadmission regimen including Cardizem, digoxin, Lasix, Lipitor
General: No Apparent Distress
HEENT: Moist Mucous Membranes
Respiratory: Clear to Auscultation
Cardiac: Regular Rhythm and S1/S2; Negative Murmur, Rub or Gallop
GI: Soft, Nontender, Nondistended and Normal Bowel Sounds; Negative Organomegaly
Musculoskeletal: No Edema
Skin: Negative Rash
Neuro: Awake, Alert, Oriented and Nonfocal/Grossly Intact
I spent a total of 51 minutes with the patient or on the floor. More than 50% of this time involved counseling and coordination of care.
Anticipated Discharge: Within 24 hours
Subjective/Interval History
-
Date of Service: December 06, 2023
denies pain
Objective Data
-
Labs:
Laboratory Results
12/06/23
05:29
WBC 6.3
Hgb 12.2 L
Hct 35.1 L
Plt Count 179
Sodium 139
Potassium 3.7
Chloride 107
Carbon Dioxide 27
BUN 19
Creatinine 0.8
Glucose 78
Calcium 8.4
Vital Signs:
Vital Signs
Temp Pulse Resp BP Pulse Ox
97.5 F 89 18 126/70 97
12/06/23 11:00 12/06/23 11:38 12/06/23 11:00 12/06/23 11:00 12/06/23 11:00
I&O
12/05/23 12/06/23 12/07/23
06:59 06:59 06:59
Intake Total 880 / 880 900 / 900
Output Total 650 / 650 625 / 625
Balance 230 / 230 275 / 275
--- NOTE | 2023-12-06 16:13 | PN.CDI ---
CDI
- -
CDI:
Physician Documentation Request
Admit Date: 12/03/23 17:12
Dear Doctor Gaudencio,
Patient admitted with a pulmonary embolism. Hospitalist progress notes states 'Elevated troponin peaked at 0.036'
Cardiology progress note states 'Likely Non IA troponin elevation'
Could you please clarify diagnosis associated with elevated troponin:
Nonischemic myocardial injury
Non IA troponin elevation
Other
Use of terms such as suspected, likely, concern for, or probable (associated with a specific diagnosis that is being evaluated, monitored, or treated as if it exists) are acceptable and can be coded in the inpatient setting, when documented at the
time of discharge.
Thank you,
Sonia Acosta RN, BSN
CDI Specialist
tiger text
Please use your independent medical judgment in providing your response.
[2023-12-06] MEDS: LIPITOR 20 MG PO (17:11)
[2023-12-06] MEDS: FLOMAX 0.4 MG PO (19:35)
[2023-12-07 02:39] VITALS: BP 111/63
[2023-12-07] MEDS: SYNTHROID 100 MCG PO (05:40)
[2023-12-07 05:56] LABS: Hematocrit 35.3 % (39.0-52.0); Mean Corpuscular Hgb 32.5 pg (27.0-31.0); Mean Corpuscular Volume 95.7 fL (80.0-94.0); Mean Platelet Volume 12.1 fL (7.4-10.4); Platelet Count 166 10^3/uL (130-400); Red Blood Cell Count 3.69 10^6/uL (4.70-6.10); Red Cell Dist. Width 13.9 % (11.5-14.5); White Blood Cell Count 6.9 10^3/uL (4.8-10.8)
[2023-12-07 06:00] VITALS: BMI 20.7
[2023-12-07 06:35] LABS: Blood Urea Nitrogen 25 mg/dl (9-20); Calcium 8.6 mg/dl (8.4-10.2); Carbon Dioxide 26 mmol/L (22-30); Chloride 109 mmol/L (98-107); Estimated Creatinine Clearance 53 ml/min; Glucose 87 mg/dl (70-99); Potassium 3.9 mmol/L (3.5-5.1); Sodium 139 mmol/L (135-145); eGFR > 60.00
[2023-12-07 07:00] VITALS: BP 102/75
[2023-12-07] MEDS: ELIQUIS 10 MG PO ×2 (07:49→19:37)
[2023-12-07] MEDS: LOW STRENGTH ASPIRIN 81 MG PO (07:49)
[2023-12-07] MEDS: KCL 20 MEQ PO (07:49)
[2023-12-07] MEDS: PROTONIX 40 MG PO (07:49)
[2023-12-07] MEDS: PROSCAR 5 MG PO (07:49)
[2023-12-07] MEDS: CARDIZEM CD 300 MG PO (07:50)
[2023-12-07] MEDS: LASIX 20 MG PO (07:50)
[2023-12-07 11:00] VITALS: BP 123/75
[2023-12-07] MEDS: LANOXIN 125 MCG PO (11:42)
--- NOTE | 2023-12-07 12:26 | W.PN.HOSP.TC ---
Today's Communication/Plan
-
Monitor vital signs see plan
Continue to do bladder scan, if require more straight catheterizations then will administer Martin
Called spouse, left voicemail
PT/OT
cw eliquis
Assessment / Plan
Assessment / Plan
Chest PE:
1. 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 Findings suggesting right heart strain.
2. Small right pleural effusion. Small pericardial effusion.

Impression:
Submassive Pulmonary embolism
Conditions prior to admission:
Severe aortic stenosis
�Outpatient echocardiogram with preserved EF and severe AAS.
Permanent atrial fibrillation
� Status post watchman.
Coronary artery disease with prior history of stent.
PPM in place.
History of CVA in
BPH
Hypothyroidism on replacement
Dyslipidemia
GERD
Chronic ambulatory dysfunction
mild hematuria
Acute urinary retention
Non ischemic myocardial injury
Plan:
Acute PE.
CT with acute on chronic partially occlusive right lower lobar pulmonary embolism. Suggestion of right heart strain. Small right pleural effusion. Small paracardial effusion.
Remains hemodynamically stable with stable respiratory status since admission.
PESI 106 class IV high risk
Echo 12/05 with EF 55 to 60%, thickened calcified aortic valve. Gradients are likely higher
Elevated troponin peaked at 0.036, BNP 7340
Lower extremity Doppler negative for DVT.
Chest pain resolved with initiation of anticoagulation
now started on eliquis
Home O2 assessment prior to discharge.
Now with acute urinary retention 12/05, status post straight cath. Mild hematuria 12/05 morning however on straight catheterization there was no blood. Monitor
required straight cath again today; if continues to require straight catheterization then likely will need Martin
Cardiovascular.
Volume status compensated
Pacemaker interrogated this admission.
Continue preadmission regimen including Cardizem, digoxin, Lasix, Lipitor
General: No Apparent Distress
HEENT: Moist Mucous Membranes
Respiratory: Clear to Auscultation
Cardiac: Regular Rhythm and S1/S2; Negative Murmur, Rub or Gallop
GI: Soft, Nontender, Nondistended and Normal Bowel Sounds; Negative Organomegaly
Musculoskeletal: No Edema
Skin: Negative Rash
Neuro: Awake, Alert, Oriented and Nonfocal/Grossly Intact
I spent a total of 51 minutes with the patient or on the floor. More than 50% of this time involved counseling and coordination of care.
PT/OT rec SNF; patient appears to be now leaning towards SNF; called spouse, awaiting call back
Anticipated Discharge: Within 24 hours
Subjective/Interval History
-
Date of Service: December 07, 2023
denies pain
Objective Data
-
Labs:
Laboratory Results
12/07/23
05:13
WBC 6.9
Hgb 12.0 L
Hct 35.3 L
Plt Count 166
Sodium 139
Potassium 3.9
Chloride 109 H
Carbon Dioxide 26
BUN 25 H
Creatinine 0.9
Glucose 87
Calcium 8.6
Vital Signs:
Vital Signs
Temp Pulse Resp BP Pulse Ox
97.3 F 83 18 123/75 95
12/07/23 11:00 12/07/23 11:42 12/07/23 11:00 12/07/23 11:00 12/07/23 11:00
I&O
12/06/23 12/07/23 12/08/23
06:59 06:59 06:59
Intake Total 900 / 900 960 / 960
Output Total 625 / 625 1080 / 1080
Balance 275 / 275 -120 / -120
--- NOTE | 2023-12-07 14:07 | PN.CDI ---
CDI
- -
CDI:
Physician Documentation Request
Admit Date: 12/03/23 17:12
Dear Doctor Gaudencio,
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
process)'
Based on the above information and your assessment, which of the following most accurately represents the patient's nutritional status?
Moderate Malnutrition
No nutritional deficiency
Other (please specify)
Roby Criteria ([facility] Hospitalist 2017)
2 or more criteria must be present for either
non severe or severe malnutrition
Note that the criteria differs related to the
presence of an acute or chronic illness
Acute Illness Chronic Illness
Energy Intake Non Severe: <75% for >7 days Non Severe: <75% for >1 month
Severe: <50% for >5 days Severe: <75% for >1 month
Weight Loss Non Severe: 1-2% over 1 week Non Severe: 5% over 1 month
5% over 1 month 7.5% over 3 months
7.5% over 3 months 10% over 6 months
1 year N/A 20% over 1 year
Severe: >2% over 1 week Severe: >5% over 1 month
>5% over 1 month >7.5% over 3 months
>7.5% over 3 months >10% over 6 months
1 year N/A >20% over 1 year
Body Fat Non Severe: Mild Decrease Non Severe: Mild Loss
Severe: Moderate Decrease Severe: Severe Loss
Muscle Mass Non Severe: Mild Decrease Non Severe: Mild Loss
Severe: Moderate Decrease Severe: Severe Loss
Fluid Accumulation Non Severe: Mild Accumulation Non Severe: Mild Accumulation
Severe: Moderate to severe Severe: Moderate to severe
accumulation accumulation
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
Severe: Measurably reduced Severe: Measurably reduced
Additional criteria that can be used to Determine if Mild or Moderate Malnutrition (Merck Manual 2018)
Mild Moderate Severe
Albumin gm/dl <3.0 gm/dl <2.5 gm/dl <2.0 gm/dl
Pre Albumin mg/dl <15 gm/dl <10 mg/dl <5.0 mg/dl
BMI <18.5 <17 <16
Use of terms such as suspected, likely, concern for, or probable (associated with a specific diagnosis that is being evaluated, monitored, or treated as if it exists) are acceptable and can be coded in the inpatient setting, when documented at the
time of discharge.
Thank you,
Sonia Acosta RN, BSN
CDI Specialist
tiger text
Please use your independent medical judgment in providing your response.
[2023-12-07 15:00] VITALS: BP 111/76
--- NOTE | 2023-12-07 16:58 | CM ---
PT OT recommended SNF.
Spoke with pt he said he wants to discuss with .
LM with .
Pt needs [employer] auth .
PLAN Needs SNF located and [employer] auth .
[2023-12-07] MEDS: LIPITOR 20 MG PO (17:02)
[2023-12-07 19:14] VITALS: BP 114/69
[2023-12-07] MEDS: FLOMAX 0.4 MG PO (19:37)
[2023-12-07 23:01] VITALS: BP 117/63
[2023-12-08] VITALS (7 sets, daily range): BP systolic 94–135; BP diastolic 65–79; PULSE 121; O2SAT 97; BMI 20.7
--- NOTE | 2023-12-08 03:21 | DOWNTIME ---
There was a [facility] Client Medical/Surgery Registered Nurse Downtime on 12/08/2023 from 0100 to 12/08/2023 at 0255. Downtime documentation of patient's care, including medication administrations, has been reconciled in the electronic record per guidelines. Refer to the
patient's paper chart under the miscellaneous tab to see printed paper medication records and downtime forms.
[2023-12-08] MEDS: SYNTHROID 100 MCG PO (05:20)
[2023-12-08 06:24] LABS: Hematocrit 35.5 % (39.0-52.0); Mean Corp Hgb Conc. 33.8 g/dL (33.0-37.0); Mean Corpuscular Hgb 32.7 pg (27.0-31.0); Mean Corpuscular Volume 96.7 fL (80.0-94.0); Mean Platelet Volume 12.2 fL (7.4-10.4); Platelet Count 168 10^3/uL (130-400); Red Blood Cell Count 3.67 10^6/uL (4.70-6.10); White Blood Cell Count 7.2 10^3/uL (4.8-10.8)
[2023-12-08 06:27] LABS: Blood Urea Nitrogen 28 mg/dl (9-20); Calcium 8.7 mg/dl (8.4-10.2); Carbon Dioxide 25 mmol/L (22-30); Chloride 108 mmol/L (98-107); Estimated Creatinine Clearance 48 ml/min; Glucose 91 mg/dl (70-99); Potassium 3.8 mmol/L (3.5-5.1); Sodium 140 mmol/L (135-145); eGFR > 60.00
[2023-12-08] MEDS: PROTONIX 40 MG PO (07:55)
[2023-12-08] MEDS: KCL 20 MEQ PO (07:56)
[2023-12-08] MEDS: ELIQUIS 10 MG PO ×2 (07:56→20:46)
[2023-12-08] MEDS: LASIX 20 MG PO (07:56)
[2023-12-08] MEDS: PROSCAR 5 MG PO (07:56)
[2023-12-08] MEDS: CARDIZEM CD 300 MG PO (07:56)
[2023-12-08] MEDS: FLOMAX 0.4 MG PO ×2 (07:56→20:46)
[2023-12-08] MEDS: LOW STRENGTH ASPIRIN 81 MG PO (07:56)
--- NOTE | 2023-12-08 11:05 | W.PN.HOSP.TC ---
Addendum entered and electronically signed by Vish Ratliff MD 12/08/23 11:22:
Spoke with granddaughter, family is agreeable on SNF. apartment house manager notified.
Original Note:
Today's Communication/Plan
-
monitor vitals
see plan
called spouse and granddaughter; left voicemail
Continue with Eliquis
Bladder scan
Continue Lasix
Continue with Proscar, Flomax
Renal/bladder ultrasound
Assessment / Plan
Assessment / Plan
Chest PE:
1. 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 Findings suggesting right heart strain.
2. Small right pleural effusion. Small pericardial effusion.

Impression:
Submassive Pulmonary embolism
Conditions prior to admission:
Severe aortic stenosis
�Outpatient echocardiogram with preserved EF and severe AAS.
Permanent atrial fibrillation
� Status post watchman.
Coronary artery disease with prior history of stent.
PPM in place.
History of CVA in
BPH
Hypothyroidism on replacement
Dyslipidemia
GERD
Chronic ambulatory dysfunction
mild hematuria
Acute urinary retention
hx of BPH
Non ischemic myocardial injury
Moderate Malnutrition
Plan:
Acute PE.
CT with acute on chronic partially occlusive right lower lobar pulmonary embolism. Suggestion of right heart strain. Small right pleural effusion. Small paracardial effusion.
Remains hemodynamically stable with stable respiratory status since admission.
PESI 106 class IV high risk
Echo 12/05 with EF 55 to 60%, thickened calcified aortic valve. Gradients are likely higher
Elevated troponin peaked at 0.036, BNP 7340
Lower extremity Doppler negative for DVT.
Chest pain resolved with initiation of anticoagulation
now started on eliquis
Home O2 assessment prior to discharge.
Now with acute urinary retention 12/05, status post straight cath. Mild hematuria 12/05 morning however on straight catheterization there was no blood. Monitor
requiring straight cath; if continues to require straight catheterization then likely will need Martin
on proscar,flomax; flomax inc to 0.4 BID
check renal/bladder US
Cardiovascular.
Volume status compensated
Pacemaker interrogated this admission.
Continue preadmission regimen including Cardizem, digoxin, Lasix, Lipitor
General: No Apparent Distress
HEENT: Moist Mucous Membranes
Respiratory: Clear to Auscultation
Cardiac: Regular Rhythm and S1/S2
GI: Soft, Nontender, Nondistended and Normal Bowel Sounds
Musculoskeletal: No Edema
Neuro: Awake, Alert, Oriented and Nonfocal/Grossly Intact
I spent a total of 52 minutes with the patient or on the floor. More than 50% of this time involved counseling and coordination of care.
PT/OT rec SNF; patient appears to be now leaning towards SNF; called spouse, granddaughter; awaiting call back
Anticipated Discharge: Within 24 hours
Subjective/Interval History
-
Date of Service: December 08, 2023
denies pain
Objective Data
-
Labs:
Laboratory Results
12/08/23
05:18
WBC 7.2
Hgb 12.0 L
Hct 35.5 L
Plt Count 168
Sodium 140
Potassium 3.8
Chloride 108 H
Carbon Dioxide 25
BUN 28 H
Creatinine 1.0
Glucose 91
Calcium 8.7
Vital Signs:
Vital Signs
Temp Pulse Resp BP Pulse Ox
97.9 F 91 17 135/79 95
12/08/23 07:00 12/08/23 07:56 12/08/23 07:00 12/08/23 07:56 12/08/23 07:00
I&O
12/07/23 12/08/23 12/09/23
06:59 06:59 06:59
Intake Total 960 / 960 1200 / 1200
Output Total 1080 / 1080 1325 / 1325
Balance -120 / -120 -125 / -125
--- NOTE | 2023-12-08 11:38 | CM ---
PT OT recommended SNF.
Spoke with who wanted to speak with .
LM with .
gave grand daughter Dagmar Fry number [phone] Admission placed in summary.
Spoke with Dagmar she said she will review Medicare.gov for [employer] dadta and call back with SNF picks.
Will need [employer] auth .
PLAN To SNF after auth
[2023-12-08] MEDS: LANOXIN 125 MCG PO (12:57)
[2023-12-08] MEDS: LIPITOR 20 MG PO (17:06)
[2023-12-09] VITALS (7 sets, daily range): BP systolic 94–140; BP diastolic 50–80; PULSE 94; O2SAT 97; BMI 20.7
[2023-12-09] MEDS: SYNTHROID 100 MCG PO (06:03)
[2023-12-09] MEDS: ELIQUIS 10 MG PO ×2 (08:03→19:59)
[2023-12-09] MEDS: FLOMAX 0.4 MG PO ×2 (08:03→19:59)
[2023-12-09] MEDS: LOW STRENGTH ASPIRIN 81 MG PO (08:05)
[2023-12-09] MEDS: LASIX 20 MG PO (08:05)
[2023-12-09] MEDS: KCL 20 MEQ PO (08:05)
[2023-12-09] MEDS: PROTONIX 40 MG PO (08:05)
[2023-12-09] MEDS: PROSCAR 5 MG PO (08:06)
[2023-12-09] MEDS: CARDIZEM CD 300 MG PO (08:06)
[2023-12-09] MEDS: LANOXIN 125 MCG PO (11:43)
--- NOTE | 2023-12-09 11:50 | W.PN.HOSP.TC ---
Today's Communication/Plan
-
Monitor vital signs
see plan
Continue with Flomax, Proscar
Continue Eliquis
Discharge planning
Assessment / Plan
Assessment / Plan
Chest PE:
1. 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 Findings suggesting right heart strain.
2. Small right pleural effusion. Small pericardial effusion.

Impression:
Submassive Pulmonary embolism
Conditions prior to admission:
Severe aortic stenosis
�Outpatient echocardiogram with preserved EF and severe AAS.
Permanent atrial fibrillation
� Status post watchman.
Coronary artery disease with prior history of stent.
PPM in place.
History of CVA in
BPH
Hypothyroidism on replacement
Dyslipidemia
GERD
Chronic ambulatory dysfunction
mild hematuria
Acute urinary retention
hx of BPH
Non ischemic myocardial injury
Moderate Malnutrition
Plan:
Acute PE.
CT with acute on chronic partially occlusive right lower lobar pulmonary embolism. Suggestion of right heart strain. Small right pleural effusion. Small paracardial effusion.
Remains hemodynamically stable with stable respiratory status since admission.
PESI 106 class IV high risk
Echo 12/05 with EF 55 to 60%, thickened calcified aortic valve. Gradients are likely higher
Elevated troponin peaked at 0.036, BNP 7340
Lower extremity Doppler negative for DVT.
Chest pain resolved with initiation of anticoagulation
now started on eliquis
Now with acute urinary retention 12/05, status post straight cath. Mild hematuria 12/05 morning however on straight catheterization there was no blood. Monitor
requiring straight cath; if continues to require straight catheterization then likely will need Martin
on proscar,flomax; flomax inc to 0.4 BID
check renal/bladder US
Cardiovascular.
Volume status compensated
Pacemaker interrogated this admission.
Continue preadmission regimen including Cardizem, digoxin, Lasix, Lipitor
General: No Apparent Distress
HEENT: Moist Mucous Membranes
Respiratory: Clear to Auscultation
Cardiac: Regular Rhythm and S1/S2
GI: Soft, Nontender, Nondistended and Normal Bowel Sounds
Musculoskeletal: No Edema
Neuro: Awake, Alert, Oriented and Nonfocal/Grossly Intact
PT/OT rec SNF; patient appears to be now leaning towards SNF; called granddaughter; they are agreeable for SNF. manager surgical aware
Anticipated Discharge: Within 24 hours
Subjective/Interval History
-
Date of Service: December 09, 2023
denies pain
Objective Data
-
Vital Signs:
Vital Signs
Temp Pulse Resp BP Pulse Ox
97.7 F 101 18 122/69 96
12/09/23 07:00 12/09/23 11:43 12/09/23 07:00 12/09/23 07:00 12/09/23 08:15
I&O
12/08/23 12/09/23 12/10/23
06:59 06:59 06:59
Intake Total 1200 / 1200 1020 / 1020
Output Total 1325 / 1325 800 / 800
Balance -125 / -125 220 / 220
--- NOTE | 2023-12-09 16:06 | CHAP ---
Addendum entered by Adri Luong 12/10/23 15:50:
[facility] of [facility] in [place] provided [facility] on evening.
Original Note:
[employer] request relayed as family wished for [facility]. Awaiting call back.
[2023-12-09] MEDS: LIPITOR 20 MG PO (17:11)
[2023-12-10] VITALS (9 sets, daily range): BP systolic 86–133; BP diastolic 52–72; PULSE 82; O2SAT 96; BMI 20.5
[2023-12-10] MEDS: SYNTHROID 100 MCG PO (05:24)
[2023-12-10 05:50] LABS: % Basophils 0.3 % (0-2); % Eosinophils 3.8 % (0-6); % Immature Granulocytes 0.5 % (0-0.5); % Lymphocytes 16.5 % (20.5-51.1); % Monocytes 7.5 % (1.7-9.3); % Neutrophils 71.4 % (42.2-75.2); Absolute Eosinophils 0.3 10^3/uL (0-0.7); Absolute Lymphocytes 1.4 10^3/uL (1.2-3.4); Absolute Monocytes 0.7 10^3/uL (0.1-0.6); Absolute Neutrophils 6.2 10^3/uL (1.4-6.5); Hemoglobin 10.4 g/dL (13.0-18.0); Mean Corp Hgb Conc. 34.7 g/dL (33.0-37.0); Mean Corpuscular Hgb 32.9 pg (27.0-31.0); Mean Corpuscular Volume 94.9 fL (80.0-94.0); Nucleated Red Blood Cells % 0 % (-); Platelet Count 172 10^3/uL (130-400); Red Blood Cell Count 3.16 10^6/uL (4.70-6.10); Red Cell Dist. Width 14.1 % (11.5-14.5); White Blood Cell Count 8.7 10^3/uL (4.8-10.8)
[2023-12-10 06:39] LABS: Blood Urea Nitrogen 44 mg/dl (9-20); Calcium 8.7 mg/dl (8.4-10.2); Carbon Dioxide 29 mmol/L (22-30); Chloride 108 mmol/L (98-107); Estimated Creatinine Clearance 52 ml/min; Glucose 93 mg/dl (70-99); Potassium 3.8 mmol/L (3.5-5.1); Sodium 141 mmol/L (135-145); eGFR > 60.00
[2023-12-10] MEDS: CARDIZEM CD 300 MG PO (08:17)
[2023-12-10] MEDS: PROTONIX 40 MG PO (08:17)
[2023-12-10] MEDS: PROSCAR 5 MG PO (08:17)
[2023-12-10] MEDS: KCL 20 MEQ PO (08:17)
[2023-12-10] MEDS: ELIQUIS 10 MG PO ×2 (08:17→20:39)
[2023-12-10] MEDS: FLOMAX 0.4 MG PO ×2 (08:17→20:39)
[2023-12-10] MEDS: LASIX 20 MG PO (08:17)
[2023-12-10] MEDS: LOW STRENGTH ASPIRIN 81 MG PO (08:19)
--- NOTE | 2023-12-10 10:32 | W.PN.HOSP.TC ---
Addendum entered and electronically signed by Vish Ratliff MD 12/10/23 10:47:
grand daughter updated over the phone
Original Note:
Today's Communication/Plan
-
monitor vitals
see plan
arredondo
check Ua
dc planning
Assessment / Plan
Assessment / Plan
Chest PE:
1. 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 Findings suggesting right heart strain.
2. Small right pleural effusion. Small pericardial effusion.

Impression:
Submassive Pulmonary embolism
Conditions prior to admission:
Severe aortic stenosis
�Outpatient echocardiogram with preserved EF and severe AAS.
Permanent atrial fibrillation
� Status post watchman.
Coronary artery disease with prior history of stent.
PPM in place.
History of CVA in
BPH
Hypothyroidism on replacement
Dyslipidemia
GERD
Chronic ambulatory dysfunction
mild hematuria
Acute urinary retention
hx of BPH
Non ischemic myocardial injury
Moderate Malnutrition
Plan:
Acute PE.
CT with acute on chronic partially occlusive right lower lobar pulmonary embolism. Suggestion of right heart strain. Small right pleural effusion. Small paracardial effusion.
Remains hemodynamically stable with stable respiratory status since admission.
PESI 106 class IV high risk
Echo 12/05 with EF 55 to 60%, thickened calcified aortic valve. Gradients are likely higher
Elevated troponin peaked at 0.036, BNP 7340
Lower extremity Doppler negative for DVT.
Chest pain resolved with initiation of anticoagulation
now started on eliquis
Now with acute urinary retention 12/05, status post straight cath. Mild hematuria 12/05 morning however on straight catheterization there was no blood. Monitor
requiring straight cath; if continues to require straight catheterization then likely will need Arredondo
on proscar,flomax; flomax inc to 0.4 BID
check renal/bladder US with prostamegaly; has been retaining and requiring multiple times straight cath; administer arredondo; will need to follow up with urology. repeat Ua
Cardiovascular.
Volume status compensated
Pacemaker interrogated this admission.
Continue preadmission regimen including Cardizem, digoxin, Lasix, Lipitor
General: No Apparent Distress
HEENT: Moist Mucous Membranes
Respiratory: Clear to Auscultation
Cardiac: Regular Rhythm and S1/S2
GI: Soft, Nontender, Nondistended and Normal Bowel Sounds
Musculoskeletal: No Edema
Neuro: Awake, Alert, Oriented and Nonfocal/Grossly Intact
I spent a total of 52 minutes with the patient or on the floor. More than 50% of this time involved counseling and coordination of care.
PT/OT rec SNF; patient appears to be now leaning towards SNF; called granddaughter; they are agreeable for SNF. executive meeting manager aware
Anticipated Discharge: Within 24 hours
Subjective/Interval History
-
Date of Service: December 10, 2023
denies pain
Objective Data
-
Labs:
Laboratory Results
12/10/23
05:29
WBC 8.7
Hgb 10.4 L
Hct 30.0 L
Plt Count 172
Sodium 141
Potassium 3.8
Chloride 108 H
Carbon Dioxide 29
BUN 44 H
Creatinine 0.9
Glucose 93
Calcium 8.7
Vital Signs:
Vital Signs
Temp Pulse Resp BP Pulse Ox
97.6 F 90 18 101/63 96
12/10/23 07:30 12/10/23 07:30 12/10/23 07:30 12/10/23 07:30 12/10/23 08:00
I&O
12/09/23 12/10/23 12/11/23
06:59 06:59 06:59
Intake Total 1020 / 1020 860 / 860
Output Total 800 / 800 980 / 980
Balance 220 / 220 -120 / -120
[2023-12-10 11:35] LABS: Urine Albumin 1+ (Neg - Trace); Urine Bilirubin 1+ (Negative); Urine Character Slightly Cloudy (Clear); Urine Color Amber; Urine Glucose Negative (Negative); Urine Ketone Trace (Negative); Urine Leukocyte Trace (Negative); Urine Nitrite Negative (Negative); Urine Occult Blood 4+ (Negative); Urine Urobilinogen Negative (Neg - 1+)
[2023-12-10] MEDS: MUCINEX 1200 MG PO ×2 (12:22→20:39)
[2023-12-10] MEDS: ProAmatine 5 MG PO ×2 (12:25→14:46)
[2023-12-10] MEDS: LANOXIN 125 MCG PO (12:28)
[2023-12-10 13:33] LABS: Urine Amorphous Seen; Urine Red Blood Cell >100 /HPF (0-2)
[2023-12-10 13:34] LABS: Urine Bacteria Moderate (Negative); Urine White Cell 0-2 /HPF (0-5)
[2023-12-10 15:15] LABS: COVID-19 Antigen Negative (Negative)
--- NOTE | 2023-12-10 15:37 | CM ---
PT OT recommended SNF.
Faxed clinical to Mildred at [facility]Care port done this am.
[facility] can accept after [employer], auth.
Covid test done as requested results negative.
Deirdre Villalobos rep assisted with auth for [facility] .
said he is ready for discharge tomorrow.
requested ambulance . Will need med nec form.
[facility]
report [phone]
fax [phone]
PLAN To [facility] after [place] at [place].
[2023-12-10] MEDS: LIPITOR 20 MG PO (17:04)
--- NOTE | 2023-12-10 20:27 | CONS.URO ---
Consultation
-
Performing Provider: Peffer
Reason for Consultation: Urinary retention
Medical History
History of Present Illness
88M with history of BPH on tamsulosin and finasteride
Patient is a poor historian and unable to give details of urologic hx other than knowing he has had a urologist for many years, or many years ago
Admitted currently for acute PE
Was found to be in urinary retention and required serial straight cath for approx 600cc post void residual on consistent basis
Increase in tamsulosin to 0.8mg did not improve emptying
A arredondo catheter was placed
Patient states he does not think he had a problem - did not feel particularly full during these episodes
Urology consulted for urinary retention
Renal bladder US showed no hydronephrosis, there was a large prostate
Past Medical History
Past Medical History: Other (Arrhythmia (A-fib), CAD and HTN)
Past Surgical History: Cardiac
Social History
Tobacco: Non-smoker
Personal:
Living: With Family
Allergies/Home Medications
Allergies
Allergy/AdvReac Type Severity Reaction Status Date / Time
acetaminophen [From Percocet] Allergy Unknown Verified 12/03/23 13:33
levofloxacin Allergy Swelling Verified 12/07/23 16:25
oxycodone [From Percocet] Allergy Unknown Verified 12/03/23 13:33
vancomycin Allergy Unknown Verified 12/03/23 13:33
Home Medications
�Medication �Instructions �Recorded �Confirmed �Type
Aspir-81 81 mg PO DAILY Blood Clot 12/03/23 12/03/23 History
Prevention/Tx
atorvastatin 20 mg tablet (Lipitor) 20 mg PO HS High Cholesterol 12/03/23 12/03/23 History
digoxin 125 mcg (0.125 mg) tablet 125 mcg PO 1XD Heart 12/03/23 12/03/23 History
Disease/Condition
diltiazem HCl 300 mg 300 mg PO 1XD Heart 12/03/23 12/03/23 History
capsule,extended release 24 hr Disease/Condition
(Cardizem CD)
ferrous sulfate 325 mg (65 mg 325 mg PO BID Supplement 12/03/23 12/03/23 History
iron) tablet (Iron (ferrous
sulfate))
finasteride 5 mg tablet (Proscar) 5 mg PO DAILY Urinary Issue 12/03/23 12/03/23 History
furosemide 20 mg tablet (Lasix) 20 mg PO DAILY Fluid 12/03/23 12/03/23 History
Retention/Swelling
omeprazole 20 mg tablet,delayed 40 mg PO DAILY GERD 12/03/23 12/03/23 History
release
potassium chloride 20 mEq 40 meq PO USEASDIRECTD Supplement 12/03/23 12/03/23 History
tablet,extended release
tamsulosin 0.4 mg capsule 0.4 mg PO HS Urinary Issue 12/03/23 12/03/23 History
apixaban 5 mg tablet (Eliquis) 5 mg PO BID #60 tabs 12/05/23 Rx
Physical Exam
Vital Signs
Vital Signs
Temp Pulse Resp BP Pulse Ox
97.6 F 74 18 109/53 93
12/10/23 19:27 12/10/23 19:27 12/10/23 19:27 12/10/23 19:27 12/10/23 19:27
Lab / Testing Results
Laboratory Results
12/10/23 05:29
12/10/23 05:29
Physical Exam
General: Well Developed, Well Nourished and No Apparent Distress
Respiratory: Clear and Non Labored Respirations
GI: Soft and Non Tender
Genito-urinary: Arredondo Catheter
Neuro: Awake and Alert
Psych: Apparent Dementia
Assessment / Plan
-
88M admitted with PE and developed urinary retention
Requiring multiple straight cath and arredondo placement for 550-600cc PVR, asymptomatic
- Maintain arredondo at discharge, repeat trial of void when patient is more mobile and closer to baseline functional status
- If going to rehab, repeat trial of void can be done there after 12/14 if facility is equipped to evaluate. Otherwise, recommend outpatient urology follow up with his regular urologist (if he has one as he claims) or in our office
- Follow up urine culture - treat per culture if positive
Data Reviewed
-
Medical Tests (Nuc Med, Echo, EKG etc): Image personally visualized and interpreted
[2023-12-11 03:23] VITALS: BP 118/64
[2023-12-11 06:00] VITALS: BMI 20.3
[2023-12-11] MEDS: SYNTHROID 100 MCG PO (06:09)
[2023-12-11 07:30] VITALS: BP 105/65
[2023-12-11 07:35] LABS: % Basophils 0.4 % (0-2); % Eosinophils 2.4 % (0-6); % Immature Granulocytes 0.4 % (0-0.5); % Lymphocytes 11.6 % (20.5-51.1); % Monocytes 6.8 % (1.7-9.3); % Neutrophils 78.4 % (42.2-75.2); Absolute Eosinophils 0.2 10^3/uL (0-0.7); Absolute Lymphocytes 1.2 10^3/uL (1.2-3.4); Absolute Monocytes 0.7 10^3/uL (0.1-0.6); Absolute Neutrophils 7.8 10^3/uL (1.4-6.5); Hematocrit 30.5 % (39.0-52.0); Hemoglobin 10.2 g/dL (13.0-18.0); Mean Corp Hgb Conc. 33.4 g/dL (33.0-37.0); Mean Corpuscular Hgb 32.8 pg (27.0-31.0); Mean Corpuscular Volume 98.1 fL (80.0-94.0); Mean Platelet Volume 12.6 fL (7.4-10.4); Nucleated Red Blood Cells % 0 % (-); Platelet Count 178 10^3/uL (130-400); Red Blood Cell Count 3.11 10^6/uL (4.70-6.10); Red Cell Dist. Width 14.3 % (11.5-14.5); White Blood Cell Count 9.9 10^3/uL (4.8-10.8)
[2023-12-11 08:11] LABS: Blood Urea Nitrogen 38 mg/dl (9-20); Calcium 8.5 mg/dl (8.4-10.2); Carbon Dioxide 25 mmol/L (22-30); Chloride 110 mmol/L (98-107); Estimated Creatinine Clearance 58 ml/min; Glucose 84 mg/dl (70-99); Potassium 3.8 mmol/L (3.5-5.1); Sodium 141 mmol/L (135-145); eGFR > 60.00
[2023-12-11] MEDS: LASIX 20 MG PO (09:03)
[2023-12-11] MEDS: MUCINEX 1200 MG PO ×2 (09:03→20:28)
[2023-12-11] MEDS: FLOMAX 0.4 MG PO ×2 (09:03→20:27)
[2023-12-11] MEDS: PROTONIX 40 MG PO (09:03)
[2023-12-11] MEDS: PROSCAR 5 MG PO (09:03)
[2023-12-11] MEDS: KCL 20 MEQ PO (09:03)
[2023-12-11] MEDS: LOW STRENGTH ASPIRIN 81 MG PO (09:04)
[2023-12-11] MEDS: CARDIZEM CD 240 MG PO (09:04)
[2023-12-11] MEDS: ELIQUIS 10 MG PO ×2 (09:06→20:27)
[2023-12-11 11:30] VITALS: BP 105/74
--- NOTE | 2023-12-11 12:14 | W.PN.HOSP.TC ---
Today's Communication/Plan
-
Monitor vital signs and see plan
Repeat hemoglobin later today
Monitor hematuria
eventual SNF
maintain arredondo
Assessment / Plan
Assessment / Plan
Chest PE:
1. 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 Findings suggesting right heart strain.
2. Small right pleural effusion. Small pericardial effusion.

Impression:
Submassive Pulmonary embolism
Conditions prior to admission:
Severe aortic stenosis
�Outpatient echocardiogram with preserved EF and severe AAS.
Permanent atrial fibrillation
� Status post watchman.
Coronary artery disease with prior history of stent.
PPM in place.
History of CVA in
BPH
Hypothyroidism on replacement
Dyslipidemia
GERD
Chronic ambulatory dysfunction
mild hematuria
Acute urinary retention
hx of BPH
Non ischemic myocardial injury
Moderate Malnutrition
Plan:
Acute PE.
CT with acute on chronic partially occlusive right lower lobar pulmonary embolism. Suggestion of right heart strain. Small right pleural effusion. Small paracardial effusion.
Remains hemodynamically stable with stable respiratory status since admission.
PESI 106 class IV high risk
Echo 12/05 with EF 55 to 60%, thickened calcified aortic valve. Gradients are likely higher
Elevated troponin peaked at 0.036, BNP 7340
Lower extremity Doppler negative for DVT.
Chest pain resolved with initiation of anticoagulation
now started on eliquis
Now with acute urinary retention 12/05, status post straight cath. Mild hematuria 12/05 morning however on straight catheterization there was no blood. Monitor
Now with Arredondo 12/09. Urology following. UA does not suggest UTI. Arredondo with mild hematuria. Continue to monitor. Repeat H&H later today
on proscar,flomax; flomax inc to 0.4 BID
check renal/bladder US with prostamegaly; has been retaining and requiring multiple times straight cath
Cardiovascular.
Volume status compensated
Pacemaker interrogated this admission.
Continue preadmission regimen including Cardizem (dose decreased), digoxin, Lasix, Lipitor
General: No Apparent Distress
HEENT: Moist Mucous Membranes
Respiratory: Clear to Auscultation
Cardiac: Regular Rhythm and S1/S2
GI: Soft, Nontender, Nondistended and Normal Bowel Sounds
: +arredondo
Musculoskeletal: No Edema
Neuro: Awake, Alert, Oriented and Nonfocal/Grossly Intact
I spent a total of 51 minutes with the patient or on the floor. More than 50% of this time involved counseling and coordination of care.
PT/OT rec SNF; patient appears to be now leaning towards SNF; called granddaughter; they are agreeable for SNF. sales planning manager aware
Anticipated Discharge: Within 24 hours
Subjective/Interval History
-
Date of Service: December 11, 2023
denies pain
Objective Data
-
Labs:
Laboratory Results
12/11/23 12/11/23
05:38 15:00
WBC 9.9
Hgb 10.2 L Pending
Hct 30.5 L Pending
Plt Count 178
Sodium 141
Potassium 3.8
Chloride 110 H
Carbon Dioxide 25
BUN 38 H
Creatinine 0.8
Glucose 84
Calcium 8.5
Vital Signs:
Vital Signs
Temp Pulse Resp BP Pulse Ox
97.7 F 99 18 105/65 96
12/11/23 07:30 12/11/23 07:30 12/11/23 07:30 12/11/23 07:30 12/11/23 10:52
I&O
12/10/23 12/11/23 12/12/23
06:59 06:59 06:59
Intake Total 860 / 860 600 / 600
Output Total 980 / 980 850 / 850
Balance -120 / -120 -250 / -250
[2023-12-11] MEDS: LANOXIN 125 MCG PO (12:15)
--- NOTE | 2023-12-11 14:04 | CM ---
Case management following for d/c planning
Per Mildred at [facility] - auth obtained
Per Dr Ratliff - pt has hematuria - not ready for d/c today
Mildred at [facility] made aware
Plan - transfer to [facility] when medically ready
[2023-12-11 15:08] LABS: Hematocrit 31.4 % (39.0-52.0); Hemoglobin 10.8 g/dL (13.0-18.0)
[2023-12-11 15:45] VITALS: BP 98/70
[2023-12-11] MEDS: NSS 500 IV (16:39)
[2023-12-11] MEDS: LIPITOR 20 MG PO (16:40)
[2023-12-11 19:20] VITALS: BP 109/59
[2023-12-11 23:33] VITALS: BP 97/79
[2023-12-12 03:49] VITALS: BP 106/63
[2023-12-12] MEDS: SYNTHROID 100 MCG PO (05:30)
[2023-12-12 06:00] VITALS: BMI 20.6
[2023-12-12 07:13] LABS: % Basophils 0.3 % (0-2); % Eosinophils 2.1 % (0-6); % Immature Granulocytes 0.5 % (0-0.5); % Lymphocytes 12.3 % (20.5-51.1); % Monocytes 7.1 % (1.7-9.3); % Neutrophils 77.7 % (42.2-75.2); Absolute Eosinophils 0.2 10^3/uL (0-0.7); Absolute Immature Granulocytes 0.1 10^3/uL (0-0.05); Absolute Lymphocytes 1.3 10^3/uL (1.2-3.4); Absolute Monocytes 0.7 10^3/uL (0.1-0.6); Absolute Neutrophils 7.9 10^3/uL (1.4-6.5); Hematocrit 28.7 % (39.0-52.0); Mean Corp Hgb Conc. 34.8 g/dL (33.0-37.0); Mean Corpuscular Volume 94.7 fL (80.0-94.0); Mean Platelet Volume 11.9 fL (7.4-10.4); Nucleated Red Blood Cells % 0 % (-); Platelet Count 210 10^3/uL (130-400); Red Blood Cell Count 3.03 10^6/uL (4.70-6.10); Red Cell Dist. Width 14.5 % (11.5-14.5); White Blood Cell Count 10.1 10^3/uL (4.8-10.8)
[2023-12-12 07:20] VITALS: BP 116/63
[2023-12-12 07:42] LABS: Blood Urea Nitrogen 36 mg/dl (9-20); Calcium 8.4 mg/dl (8.4-10.2); Carbon Dioxide 23 mmol/L (22-30); Chloride 110 mmol/L (98-107); Estimated Creatinine Clearance 53 ml/min; Glucose 88 mg/dl (70-99); Potassium 3.8 mmol/L (3.5-5.1); Sodium 142 mmol/L (135-145); eGFR > 60.00
[2023-12-12] MEDS: DUONEB 3 ML INH (10:01)
[2023-12-12] MEDS: PROSCAR 5 MG PO (10:15)
[2023-12-12] MEDS: CARDIZEM CD 240 MG PO (10:15)
[2023-12-12] MEDS: PROTONIX 40 MG PO (10:15)
[2023-12-12] MEDS: MUCINEX 1200 MG PO ×2 (10:15→19:56)
[2023-12-12] MEDS: FLOMAX 0.4 MG PO ×2 (10:15→19:56)
[2023-12-12] MEDS: LASIX 20 MG PO (10:16)
[2023-12-12] MEDS: LOW STRENGTH ASPIRIN 81 MG PO (10:16)
[2023-12-12] MEDS: KCL 20 MEQ PO (10:16)
[2023-12-12] MEDS: ELIQUIS 10 MG PO (10:16)
--- NOTE | 2023-12-12 11:19 | W.PN.HOSP.TC ---
Addendum entered and electronically signed by Vish Ratliff MD 12/12/23 18:45:
Spoke with GI. Ok for heparin gtt without bolus.
Addendum entered and electronically signed by Vish Ratliff MD 12/12/23 16:40:
Heme test positive. Start clears. Hold Eliquis for now. Consult GI. PPI made IV. Discussed again with granddaughter Dagmar, she is already speaking with the family. Will ask attending physician tomorrow to contact family for a meeting.
Addendum entered and electronically signed by Vish Ratliff MD 12/12/23 13:37:
Discussed with granddaughter regarding patient's clinical status. She will be speaking to the family regarding CODE STATUS.
Addendum entered and electronically signed by Vish Ratliff MD 12/12/23 12:48:
Chest x-ray with possible pneumonia or small pleural effusion. Pro-Gaetano negative. Continue to monitor off antibiotics
Original Note:
Today's Communication/Plan
-
Monitor vitals
See plan
Repeat hemoglobin later today
Heme test stool
Continue Eliquis
Monitor Arredondo
Increase Cardizem back to home dose
Continue digoxin
Called granddaughter, left voicemail
Assessment / Plan
Assessment / Plan
Chest PE:
1. 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 Findings suggesting right heart strain.
2. Small right pleural effusion. Small pericardial effusion.

Impression:
Submassive Pulmonary embolism
Dark stool
Conditions prior to admission:
Severe aortic stenosis
�Outpatient echocardiogram with preserved EF and severe AAS.
Permanent atrial fibrillation
� Status post watchman.
Coronary artery disease with prior history of stent.
PPM in place.
History of CVA in
BPH
Hypothyroidism on replacement
Dyslipidemia
GERD
Chronic ambulatory dysfunction
mild hematuria
Acute urinary retention
hx of BPH
Non ischemic myocardial injury
Moderate Malnutrition
Plan:
Acute PE.
CT with acute on chronic partially occlusive right lower lobar pulmonary embolism. Suggestion of right heart strain. Small right pleural effusion. Small paracardial effusion.
Remains hemodynamically stable with stable respiratory status since admission.
PESI 106 class IV high risk
Echo 12/05 with EF 55 to 60%, thickened calcified aortic valve. Gradients are likely higher
Elevated troponin peaked at 0.036, BNP 7340
Lower extremity Doppler negative for DVT.
Chest pain resolved with initiation of anticoagulation
now started on eliquis
Now with acute urinary retention 12/05, status post straight cath. Mild hematuria 12/05 morning however on straight catheterization there was no blood. Monitor
Now with Arredondo 12/09. Urology following. UA does not suggest UTI. Arredondo with mild hematuria. Continue to monitor. Repeat H&H later today
on proscar,flomax; flomax inc to 0.4 BID
check renal/bladder US with prostamegaly; has been retaining and requiring multiple times straight cath
RN noted dark stool; Check heme test stool, repeat hemoglobin later today
Cardiovascular.
Volume status compensated
Pacemaker interrogated this admission.
Continue preadmission regimen including Cardizem, digoxin, Lasix, Lipitor; increase Cardizem dose back to home dose
General: No Apparent Distress
HEENT: Moist Mucous Membranes
Respiratory: Clear to Auscultation
Cardiac: Regular Rhythm and S1/S2
GI: Soft, Nontender, Nondistended and Normal Bowel Sounds
: +arredondo
Musculoskeletal: No Edema
Neuro: Awake, Alert, Oriented and Nonfocal/Grossly Intact
I spent a total of 51 minutes with the patient or on the floor. More than 50% of this time involved counseling and coordination of care.
PT/OT rec SNF; patient appears to be now leaning towards SNF; called granddaughter; they are agreeable for SNF. superannuation funds manager aware
Anticipated Discharge: Within 24 hours
Subjective/Interval History
-
Date of Service: December 12, 2023
denies chest pain
Objective Data
-
Labs:
Laboratory Results
12/12/23
05:24
WBC 10.1
Hgb 10.0 L
Hct 28.7 L
Plt Count 210
Sodium 142
Potassium 3.8
Chloride 110 H
Carbon Dioxide 23
BUN 36 H
Creatinine 0.9
Glucose 88
Calcium 8.4
Vital Signs:
Vital Signs
Temp Pulse Resp BP Pulse Ox
97.8 F 81 24 116/63 98
12/12/23 07:20 12/12/23 10:00 12/12/23 10:00 12/12/23 07:20 12/12/23 10:00
I&O
12/11/23 12/12/23 12/13/23
06:59 06:59 06:59
Intake Total 600 / 600 600 / 600
Output Total 850 / 850 750 / 750
Balance -250 / -250 -150 / -150
[2023-12-12] MEDS: LANOXIN 125 MCG PO (11:21)
[2023-12-12 11:26] VITALS: BP 118/70
--- NOTE | 2023-12-12 12:26 | W.PN.URO.CBU ---
Today's Communication / Plan
-
Discharge with arredondo
Outpatient trial of void
Assessment / Plan
-
88M admitted with PE and developed urinary retention
Requiring multiple straight cath and arredondo placement for 550-600cc PVR, asymptomatic
- Maintain arredondo at discharge, repeat trial of void when patient is more mobile and closer to baseline functional status
- Urine culture with Lactobacillus - suspect chronic colonizer given mild urinalysis. Does not need antibiotic treatment
- If going to rehab, repeat trial of void can be done there after 12/14 if facility is equipped to evaluate. Otherwise, recommend outpatient urology follow up with his regular urologist (if he has one as he claims) or in our office
Diagnosis
-
Date of Service: December 12, 2023
-
Patient Diagnosis:
Urinary retention
Gross hematuria
Post Op Day:
Subjective
-
No events overnight
Objective
-
Vital Signs
Temp Pulse Resp BP Pulse Ox
97.5 F 88 20 118/70 94
12/12/23 11:26 12/12/23 11:26 12/12/23 11:26 12/12/23 11:26 12/12/23 11:26
Intake and Output
12/11/23 12/12/23 12/13/23
06:59 06:59 06:59
Intake Total 600 / 600 600 / 600
Output Total 850 / 850 750 / 750
Balance -250 / -250 -150 / -150
Intake:
Oral fluids 600 / 600 600 / 600
Output:
Urine, Arredondo 850 / 850 350 / 350
Urine, Voided 400 / 400
Laboratory Results
12/12/23 05:24
12/12/23 05:24
Physical Exam
-
General - well developed, well nourished, no acute distress
Chest - clear bilaterally
Abdomen - soft, non-tender
Arredondo in place, hematuria near resolved
Skin - warm & dry with no rash
[2023-12-12 12:28] LABS: Procalcitonin < 0.05 ng/ml (0.0-0.25)
[2023-12-12 15:25] VITALS: BP 94/57
[2023-12-12] MEDS: XOPENEX 1.25 MG INHALANT SOLUTION INH (16:23)
[2023-12-12] MEDS: LIPITOR 20 MG PO (17:25)
--- NOTE | 2023-12-12 18:24 | CON.GI ---
Consultation
-
Date/Time Consultation Requested: 12/12/23 4:39pm
Date/Time Consultation Performed: 12/12/23 6:25pm
Requesting Provider: Vish Ratliff
Performing Provider: Milton Kaur
Reason for Consultation: Heme positive dark stool
Medical History
Chief Complaint / HPI
Chief Complaint: Heme positive dark stool
History of Present Illness:
Patient is an 88-year-old male who presents with chest pain and shortness of breath. He was found to have a submassive PE on his CAT scan and started on heparin drip which was converted to Eliquis. During his admission he was noted to have a black
stool that was heme positive. His hemoglobin has remained relatively stable in the 10 range. He reports a remote history of colonoscopy in the past he believes. He denies any dysphagia, reflux, abdominal pain, change in bowel habits. He denies
NSAIDs and uses Tylenol for headaches.
Past Medical History
Past Medical History: CAD, CVA, Valvular Disease (Aortic stenosis) and Other (Atrial fibrillation s/p Watchman, SSS s/p pacer)
Past Surgical History: None
Social History
Tobacco: Non-Smoker
Family History
Family History: Reviewed & Not Pertinent
Allergies / Home Medications
Allergy/AdvReac Type Severity Reaction Status Date / Time
acetaminophen [From Percocet] Allergy Unknown Verified 12/03/23 13:33
levofloxacin Allergy Swelling Verified 12/07/23 16:25
oxycodone [From Percocet] Allergy Unknown Verified 12/03/23 13:33
vancomycin Allergy Unknown Verified 12/03/23 13:33
�Medication �Instructions �Recorded
Aspir-81 81 mg PO DAILY Blood Clot 12/03/23
Prevention/Tx
atorvastatin 20 mg tablet (Lipitor) 20 mg PO HS High Cholesterol 12/03/23
digoxin 125 mcg (0.125 mg) tablet 125 mcg PO 1XD Heart 12/03/23
Disease/Condition
diltiazem HCl 300 mg 300 mg PO 1XD Heart 12/03/23
capsule,extended release 24 hr Disease/Condition
(Cardizem CD)
ferrous sulfate 325 mg (65 mg 325 mg PO BID Supplement 12/03/23
iron) tablet (Iron (ferrous
sulfate))
finasteride 5 mg tablet (Proscar) 5 mg PO DAILY Urinary Issue 12/03/23
furosemide 20 mg tablet (Lasix) 20 mg PO DAILY Fluid 12/03/23
Retention/Swelling
omeprazole 20 mg tablet,delayed 40 mg PO DAILY GERD 12/03/23
release
potassium chloride 20 mEq 40 meq PO USEASDIRECTD Supplement 12/03/23
tablet,extended release
tamsulosin 0.4 mg capsule 0.4 mg PO HS Urinary Issue 12/03/23
apixaban 5 mg tablet (Eliquis) 5 mg PO BID #60 tabs 12/05/23
Review of Systems
-
All other systems: A 12 pt ROS was Negative except as stated above in HPI
Vital Signs
Temp Pulse Resp BP Pulse Ox
97.8 F 87 16 94/57 95
12/12/23 15:25 12/12/23 16:26 12/12/23 16:26 12/12/23 15:25 12/12/23 16:26
Physical Exam
Exam
General: No Apparent Distress
HEENT: Atraumatic
Respiratory: Non Labored Respirations
GI: Soft, Non Tender and Non Distended
Skin: Warm and Dry
Results
WBC 10.1 10^3/uL (4.8-10.8) 12/12/23 05:24
Hgb 10.0 g/dL (13.0-18.0) L 12/12/23 05:24
Hct 28.7 % (39.0-52.0) L 12/12/23 05:24
MCV 94.7 fL (80.0-94.0) H 12/12/23 05:24
Plt Count 210 10^3/uL (130-400) 12/12/23 05:24
Absolute Neuts (auto) 7.9 10^3/uL (1.4-6.5) H 12/12/23 05:24
APTT 235.1 Sec (23.4-35.0) H* 12/05/23 18:26
Sodium 142 mmol/L (135-145) 12/12/23 05:24
Potassium 3.8 mmol/L (3.5-5.1) 12/12/23 05:24
Chloride 110 mmol/L (98-107) H 12/12/23 05:24
Carbon Dioxide 23 mmol/L (22-30) 12/12/23 05:24
BUN 36 mg/dl (9-20) H 12/12/23 05:24
Creatinine 0.9 mg/dL (0.7-1.3) 12/12/23 05:24
Calcium 8.4 mg/dl (8.4-10.2) 12/12/23 05:24
Total Bilirubin 1.7 mg/dl (0.2-1.3) H 12/03/23 13:39
AST 27 U/L (17-59) 12/03/23 13:39
ALT 18 U/L (0-50) 12/03/23 13:39
Alkaline Phosphatase 101 U/L (38-126) 12/03/23 13:39
Diagnostic Image Results:
Prior GI Procedures:
EGD:
Colonoscopy:
Assessment / Plan
-
Summary: 88yo male presents with CP and SOB. Found to have submassive PE on CT and started on heparin gtt. This was converted to Eliquis. He was noted to pass black stool heme positive on 12/11. Hgb has remained stable in 10 range after
admission. No GI complaints. Denies NSAIDs. Remote hx colonoscopy years ago he believes
Impression:
Heme positive black stool 12/11
Submassive PE
Afib s/p Watchman
SSS s/p pacer
Recommendations:
Given need for anticoagulation in setting of acute PE and relative stability of Hgb, would be OK with resuming Heparin gtt without bolus
If signs of active bleeding, we can stop heparin
Continue protonix BID for now.
Follow Hgb
-
-
Thank you for consultation and allowing me to participate in the patient's care. Please call the construction services technician GI physician during the after hours with any questions or concerns.
[2023-12-12 19:34] LABS: Hematocrit 28.9 % (39.0-52.0)
[2023-12-12 19:44] LABS: APTT 40.1 Sec (23.4-35.0)
[2023-12-12] MEDS: NSS (PRESERVATIVE FREE) 10 ML IV (19:57)
[2023-12-12] MEDS: PROTONIX IV 40 MG IV (19:57)
[2023-12-12] MEDS: HEPARIN 25000 UNITS/250 ML IV (19:58)
[2023-12-12 20:15] VITALS: BP 103/60
[2023-12-12 23:07] VITALS: BP 104/68
[2023-12-13] VITALS (7 sets, daily range): BP systolic 90–117; BP diastolic 54–77; PULSE 85; O2SAT 97
--- NOTE | 2023-12-13 02:09 | W.PN.UPDATE ---
Update Note
Progress Note Update
Since the initiation on heparin gtt (for PE) at 1999, pt urine has changed from blood tinged to much more pronounced hematuria. No complaints of pain.
Pt also had heme pos stools while on eliquis (changed back to heparin gtt this valerio).
Now with more charissa bleeding in arredondo bag- will need to stop heparin gtt
--- NOTE | 2023-12-13 02:12 | PTCARENOTE ---
Heparin drip turned off as patient has developed hematuria. Urine dark oscar on start of infusion at 2009. SIVAN Beckford notified and order placed to hold heparin. PTT for 0210 cancelled. AM labs in.
[2023-12-13] MEDS: SYNTHROID 100 MCG PO (05:32)
[2023-12-13 05:49] LABS: % Basophils 0.3 % (0-2); % Eosinophils 2.3 % (0-6); % Immature Granulocytes 0.7 % (0-0.5); % Lymphocytes 13.8 % (20.5-51.1); % Neutrophils 75.9 % (42.2-75.2); Absolute Eosinophils 0.2 10^3/uL (0-0.7); Absolute Immature Granulocytes 0.1 10^3/uL (0-0.05); Absolute Lymphocytes 1.3 10^3/uL (1.2-3.4); Absolute Monocytes 0.6 10^3/uL (0.1-0.6); Absolute Neutrophils 6.9 10^3/uL (1.4-6.5); Hematocrit 28.6 % (39.0-52.0); Hemoglobin 9.7 g/dL (13.0-18.0); Mean Corp Hgb Conc. 33.9 g/dL (33.0-37.0); Mean Corpuscular Hgb 33.8 pg (27.0-31.0); Mean Corpuscular Volume 99.7 fL (80.0-94.0); Mean Platelet Volume 11.7 fL (7.4-10.4); Nucleated Red Blood Cells % 0 % (-); Platelet Count 216 10^3/uL (130-400); Red Blood Cell Count 2.87 10^6/uL (4.70-6.10); Red Cell Dist. Width 14.7 % (11.5-14.5); White Blood Cell Count 9.1 10^3/uL (4.8-10.8)
[2023-12-13 06:11] LABS: Blood Urea Nitrogen 34 mg/dl (9-20); Calcium 8.4 mg/dl (8.4-10.2); Carbon Dioxide 25 mmol/L (22-30); Chloride 111 mmol/L (98-107); Estimated Creatinine Clearance 53 ml/min; Glucose 90 mg/dl (70-99); Potassium 3.9 mmol/L (3.5-5.1); Sodium 142 mmol/L (135-145); eGFR > 60.00
[2023-12-13] MEDS: NSS (PRESERVATIVE FREE) 10 ML IV ×2 (08:10→20:03)
[2023-12-13] MEDS: MUCINEX 1200 MG PO ×2 (08:10→20:02)
[2023-12-13] MEDS: PROSCAR 5 MG PO (08:10)
[2023-12-13] MEDS: LOW STRENGTH ASPIRIN 81 MG PO (08:10)
[2023-12-13] MEDS: LASIX 20 MG PO (08:10)
[2023-12-13] MEDS: FLOMAX 0.4 MG PO ×2 (08:10→20:03)
[2023-12-13] MEDS: KCL 20 MEQ PO (08:10)
[2023-12-13] MEDS: CARDIZEM CD 300 MG PO (08:11)
[2023-12-13] MEDS: PROTONIX IV 40 MG IV ×2 (08:11→20:03)
--- NOTE | 2023-12-13 10:40 | W.PN.GI.CBS2 ---
Addendum entered and electronically signed by Milton Kaur MD 12/13/23 11:44:
I saw and examined the patient.
The BAND ATTACHER or PA's note was reviewed and I agree with the note.
Comment: No BM after black heme positive stool yesterday. Heparin gtt was initially restarted, then stopped due to hematuria
ABD soft NTND
REC:
I don't think pt is actively GI bleeding at this time
Cont protonix BID
Hematuria w/u per Urology
Hgb has been relatively stable.
Will sign off for now. Please call back if concern for active GI bleeding
Original Note:
Today's Communication / Plan
-
Continue Protonix
Assessment / Plan
-
Summary: 88yo male presents with CP and SOB. Found to have submassive PE on CT and started on heparin gtt. This was converted to Eliquis. He was noted to pass black stool heme positive on 12/11. Hgb has remained stable in 10 range after
admission. No GI complaints. Denies NSAIDs. Remote hx colonoscopy years ago he believes
Impression:
Heme positive black stool 12/11
Submassive PE
Afib s/p Watchman
SSS s/p pacer
Hematuria-> Hep gtt stopped secondary to this
Recommendations:
Hep gtt on Hold secondary to Hematuria.
Given need for anticoagulation in setting of acute PE and relative stability of Hgb, would be OK with resuming Heparin gtt without bolus from a GI standpoint.
If signs of active bleeding, we can stop heparin
Continue protonix BID for now.
Follow Hgb
Tolerating clear liquid diet.
Subjective
Subjective
Date of Service: December 13, 2023
Patient with no BM today. Heparin gtt stopped secondary to hematuria overnight. Hgb 9.7 this am from 10.0. Patient denies any abdominal pain. On Protonix 40 mg IV BID. Tolerating clear liquid diet.
Objective
Data Reviewed
Laboratory Data:
Laboratory Results
12/13/23 05:26
12/13/23 05:26
Laboratory Results
APTT Cancelled 12/13/23 02:10
Magnesium 2.0 mg/dl (1.6-2.3) 12/04/23 08:55
Total Bilirubin 1.7 mg/dl (0.2-1.3) H 12/03/23 13:39
AST 27 U/L (17-59) 12/03/23 13:39
ALT 18 U/L (0-50) 12/03/23 13:39
Alkaline Phosphatase 101 U/L (38-126) 12/03/23 13:39
Vital Signs and I&O:
Vital Signs
Temp Pulse Resp BP Pulse Ox
97.5 F 100 20 109/70 100
12/13/23 07:30 12/13/23 07:30 12/13/23 07:30 12/13/23 07:30 12/13/23 08:15
I&O
12/12/23 12/13/23 12/14/23
06:59 06:59 06:59
Intake Total 600 / 600 600 / 600
Output Total 750 / 750 800 / 800
Balance -150 / -150 -200 / -200
Physical Exam
Physical Exam
HEENT: Anicteric
Cardiology: Normal Sinus Rhythm
Pulmonary: Clear
GI: Soft, Non Distended, Non Tender and Normal Bowel Sounds
Neuro: Non Focal
[2023-12-13] MEDS: LANOXIN 125 MCG PO (12:40)
--- NOTE | 2023-12-13 15:23 | W.PN.HOSP.TC ---
Today's Communication/Plan
-
Hold anticoagulation
Continue Martin
Monitor hemoglobin.
Assessment / Plan
Assessment / Plan
Chest PE:
1. 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 Findings suggesting right heart strain.
2. Small right pleural effusion. Small pericardial effusion.

Impression:
Submassive Pulmonary embolism
Dark stool
Conditions prior to admission:
Severe aortic stenosis
�Outpatient echocardiogram with preserved EF and severe AAS.
Permanent atrial fibrillation
� Status post watchman.
Coronary artery disease with prior history of stent.
PPM in place.
History of CVA in
BPH
Hypothyroidism on replacement
Dyslipidemia
GERD
Chronic ambulatory dysfunction
mild hematuria
Acute urinary retention
hx of BPH
Non ischemic myocardial injury
Moderate Malnutrition
Plan:
Acute PE.
CT with acute on chronic partially occlusive right lower lobar pulmonary embolism. Suggestion of right heart strain. Small right pleural effusion. Small paracardial effusion.
Remains hemodynamically stable with stable respiratory status since admission.
PESI 106 class IV high risk
Echo 12/05 with EF 55 to 60%, thickened calcified aortic valve. Gradients are likely higher
Elevated troponin peaked at 0.036, BNP 7340
Lower extremity Doppler negative for DVT.
Chest pain resolved with initiation of anticoagulation
Initially on heparin transition to Eliquis.. Currently on hold due to ongoing hematuria.
Now with acute urinary retention 12/05, status post straight cath.
Ongoing hematuria secondary to combination of Martin catheter trauma as well as anticoagulation (heparin/Eliquis)
Now with Martin 12/09. Urology following. UA does not suggest UTI.
on proscar,flomax; flomax inc to 0.4 BID
Kidney/bladder ultrasound with no acute abnormalities
Hold anticoagulation last dose of Eliquis 12/11
Monitor for clot retention.
Consider CBI
Acute blood loss anemia secondary to gross hematuria
Hemoglobin trending down 12�9.
Hemodynamically stable
No clinical indication for transfusion at this point
RN noted dark stool
GI input appreciated
No clinical evidence for gastrointestinal hemorrhage.
Cardiovascular.
Volume status compensated
Pacemaker interrogated this admission.
Continue preadmission regimen including Cardizem, digoxin, Lasix, Lipitor; increase Cardizem dose back to home dose. In addition patient is on metoprolol, currently on hold. Monitor marginal BP.
PT/OT rec SNF; patient appears to be now leaning towards SNF; called granddaughter; they are agreeable for SNF. chronic manager aware
Anticipated Discharge: 24 - 48 hours
Subjective/Interval History
-
Date of Service: December 13, 2023
Objective Data
-
Labs:
Laboratory Results
12/13/23
05:26
WBC 9.1
Hgb 9.7 L
Hct 28.6 L
Plt Count 216
Sodium 142
Potassium 3.9
Chloride 111 H
Carbon Dioxide 25
BUN 34 H
Creatinine 0.9
Glucose 90
Calcium 8.4
Vital Signs:
Vital Signs
Temp Pulse Resp BP Pulse Ox
97.6 F 88 20 99/61 98
12/13/23 11:45 12/13/23 12:40 12/13/23 11:45 12/13/23 11:45 12/13/23 11:45
I&O
12/12/23 12/13/23 12/14/23
06:59 06:59 06:59
Intake Total 600 / 600 600 / 600
Output Total 750 / 750 800 / 800
Balance -150 / -150 -200 / -200
Physical Exam
-
General: No Apparent Distress
HEENT: Moist Mucous Membranes
Respiratory: Clear to Auscultation
Cardiac: Regular Rhythm and S1/S2; Negative Murmur, Rub or Gallop
GI: Soft, Nontender, Nondistended and Normal Bowel Sounds; Negative Organomegaly
Genito-urinary: Martin (With bloodstained urine)
Musculoskeletal: No Edema
Skin: Negative Rash
Neuro: Awake, Alert, Oriented and Nonfocal/Grossly Intact
--- NOTE | 2023-12-13 16:49 | W.PN.URO.CBU ---
Today's Communication / Plan
-
leave arredondo hand irrigat prn major clots
Assessment / Plan
-
88M admitted with PE and developed urinary retention
Requiring multiple straight cath and arredondo placement for 550-600cc PVR, asymptomatic
- Maintain arredondo at discharge, repeat trial of void when patient is more mobile and closer to baseline functional status
- Urine culture with Lactobacillus - suspect chronic colonizer given mild urinalysis. Does not need antibiotic treatment
- If going to rehab, repeat trial of void can be done there after 12/14 if facility is equipped to evaluate. Otherwise, recommend outpatient urology follow up with his regular urologist (if he has one as he claims) or in our office
Diagnosis
-
Date of Service: December 13, 2023
-
Patient Diagnosis:
Post Op Day:
Patient Diagnosis:
Urinary retention
Gross hematuria
Post Op Day:
Subjective
-
no john bleeding with larger arredondo
Objective
-
Vital Signs
Temp Pulse Resp BP Pulse Ox
97.6 F 90 16 94/61 95
12/13/23 16:00 12/13/23 16:00 12/13/23 16:00 12/13/23 16:00 12/13/23 16:00
Intake and Output
12/12/23 12/13/23 12/14/23
06:59 06:59 06:59
Intake Total 600 / 600 600 / 600
Output Total 750 / 750 800 / 800
Balance -150 / -150 -200 / -200
Intake:
Oral fluids 600 / 600 600 / 600
Output:
Urine, Arredondo 350 / 350 800 / 800
Urine, Voided 400 / 400
Laboratory Results
12/13/23 05:26
12/13/23 05:26
Review of Systems
-
: Dark Urine
Physical Exam
-
General - well developed, well nourished, no acute distress
Chest - clear bilaterally
Abdomen - soft, non-tender, positive bowel sounds, no CVAT, no incisional pain or distention
Genitalia - normal
Rectal - normal
Skin - warm & dry with no rash
Neuro - AOx3, no motor deficits
Extremities - no clubbing, no cyanosis, no edema
Incision - clean, dry
Dressing - clean, dry, intact
Care Review
Data Reviewed
Discussed with: Hospitalist
[2023-12-13] MEDS: LIPITOR 20 MG PO (17:37)
[2023-12-14] VITALS (7 sets, daily range): BP systolic 103–118; BP diastolic 64–75; PULSE 95; O2SAT 96
[2023-12-14] MEDS: SYNTHROID 100 MCG PO (05:30)
[2023-12-14 06:48] LABS: Hematocrit 28.9 % (39.0-52.0); Hemoglobin 9.6 g/dL (13.0-18.0); Mean Corp Hgb Conc. 33.2 g/dL (33.0-37.0); Mean Corpuscular Hgb 33.4 pg (27.0-31.0); Mean Corpuscular Volume 100.7 fL (80.0-94.0); Mean Platelet Volume 11.4 fL (7.4-10.4); Platelet Count 233 10^3/uL (130-400); Red Blood Cell Count 2.87 10^6/uL (4.70-6.10); Red Cell Dist. Width 14.9 % (11.5-14.5); White Blood Cell Count 9.7 10^3/uL (4.8-10.8)
[2023-12-14 07:19] LABS: Blood Urea Nitrogen 29 mg/dl (9-20); Calcium 8.5 mg/dl (8.4-10.2); Carbon Dioxide 23 mmol/L (22-30); Chloride 109 mmol/L (98-107); Estimated Creatinine Clearance 53 ml/min; Glucose 86 mg/dl (70-99); Potassium 4.2 mmol/L (3.5-5.1); Sodium 140 mmol/L (135-145); eGFR > 60.00
--- NOTE | 2023-12-14 08:59 | W.PN.URO.CBU ---
Today's Communication / Plan
-
Trial of void
Assessment / Plan
-
88M admitted with PE and developed urinary retention
Requiring multiple straight cath and arredondo placement for 550-600cc PVR, asymptomatic
- Persistent mild hematuria on heparin, but given no clots or obstruction of 16Fr arredondo for several days this is low volume bleeding
- Catheter irrigated today quickly to clear and no clots suggests minimal active bleeding
- Remove arredondo today for trial of void
Diagnosis
-
Date of Service: December 14, 2023
-
Patient Diagnosis:
Urinary retention
Gross hematuria
Post Op Day:
Subjective
-
No changes overnight
Continued mild hematuria without clots
Objective
-
Vital Signs
Temp Pulse Resp BP Pulse Ox
98.4 F 78 18 103/67 94
12/14/23 03:22 12/14/23 03:22 12/14/23 03:22 12/14/23 03:22 12/14/23 03:22
Intake and Output
12/13/23 12/14/23 12/15/23
06:59 06:59 06:59
Intake Total 600 / 600 480 / 480
Output Total 800 / 800 1050 / 1050
Balance -200 / -200 -570 / -570
Intake:
Oral fluids 600 / 600 480 / 480
Output:
Urine, Arredondo 800 / 800 1050 / 1050
Laboratory Results
12/14/23 06:29
12/14/23 06:29
Physical Exam
-
General - well developed, frail, no acute distress
: arredondo in place, light red transparent urine without clots
Skin - warm & dry with no rash
[2023-12-14] MEDS: CARDIZEM CD PO (09:02)
[2023-12-14] MEDS: LASIX PO (09:03)
[2023-12-14] MEDS: PROSCAR 5 MG PO (10:04)
[2023-12-14] MEDS: FLOMAX 0.4 MG PO ×2 (10:04→20:36)
[2023-12-14] MEDS: LOW STRENGTH ASPIRIN 81 MG PO (10:04)
[2023-12-14] MEDS: MUCINEX 1200 MG PO ×2 (10:05→20:36)
[2023-12-14] MEDS: KCL 20 MEQ PO (10:05)
[2023-12-14] MEDS: NSS (PRESERVATIVE FREE) IV (10:06)
[2023-12-14] MEDS: LANOXIN 125 MCG PO (12:11)
[2023-12-14] MEDS: PROTONIX IV IV (12:42)
[2023-12-14] MEDS: PROTONIX 20 MG PO (13:53)
--- NOTE | 2023-12-14 15:24 | W.PN.HOSP.TC ---
Today's Communication/Plan
-
Extensive discussion with patient and patient family in terms of goals of care
88 years old with advanced heart disease/CHF with persistent declining in terms of performance status over the past 6 months presents with pulmonary embolism. Initiated on anticoagulation with complications including gross hematuria, acute urine
retention, concern for gastrointestinal hemorrhage. Deteriorated performance status. Patient is not a good candidate for invasive workup. At this point declining any aggressive measures of prolonging life or invasive tests and treatments. He
declined any aggressive means of treatment including CPR, invasive intubation. Patient prefers to be discharged home under hospice and Comfortable.
Assessment / Plan
Assessment / Plan
Chest PE:
1. 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 Findings suggesting right heart strain.
2. Small right pleural effusion. Small pericardial effusion.

Impression:
Submassive Pulmonary embolism
Dark stool
Conditions prior to admission:
Severe aortic stenosis
�Outpatient echocardiogram with preserved EF and severe AAS.
Permanent atrial fibrillation
� Status post watchman.
Coronary artery disease with prior history of stent.
PPM in place.
History of CVA in
BPH
Hypothyroidism on replacement
Dyslipidemia
GERD
Chronic ambulatory dysfunction
mild hematuria
Acute urinary retention
hx of BPH
Non ischemic myocardial injury
Moderate Malnutrition
Plan:
Acute PE.
CT with acute on chronic partially occlusive right lower lobar pulmonary embolism. Suggestion of right heart strain. Small right pleural effusion. Small paracardial effusion.
Remains hemodynamically stable with stable respiratory status since admission.
PESI 106 class IV high risk
Echo 12/05 with EF 55 to 60%, thickened calcified aortic valve. Gradients are likely higher
Elevated troponin peaked at 0.036, BNP 7340
Lower extremity Doppler negative for DVT.
Chest pain resolved with initiation of anticoagulation
Initially on heparin transition to Eliquis.. Currently on hold due to ongoing hematuria.
Now with acute urinary retention 12/05, status post straight cath.
Ongoing hematuria secondary to combination of Martin catheter trauma as well as anticoagulation (heparin/Eliquis)
Now with Martin 12/09. Urology following. UA does not suggest UTI.
on proscar,flomax; flomax inc to 0.4 BID
Kidney/bladder ultrasound with no acute abnormalities
Hold anticoagulation last dose of Eliquis 12/11
Monitor for clot retention.
Consider CBI
Acute blood loss anemia secondary to gross hematuria
Hemoglobin trending down 12�9.
Hemodynamically stable
No clinical indication for transfusion at this point
RN noted dark stool
GI input appreciated
Cardiovascular.
Volume status compensated
Pacemaker interrogated this admission.
Continue preadmission regimen including Cardizem, digoxin, Lasix, Lipitor; increase Cardizem dose back to home dose. In addition patient is on metoprolol, currently on hold. Monitor marginal BP.
Disposition and goals of care discussion.
12/13. Extensive discussion with patient and patient family in terms of goals of care
88 years old with advanced heart disease/CHF with persistent declining in terms of performance status over the past 6 months presents with pulmonary embolism. Initiated on anticoagulation with complications including gross hematuria, acute urine
retention, concern for gastrointestinal hemorrhage. Deteriorated performance status. Patient is not a good candidate for invasive workup. At this point declining any aggressive measures of prolonging life or invasive tests and treatments. He
declined any aggressive means of treatment including CPR, invasive intubation. Patient prefers to be discharged home under hospice and Comfortable.
Anticipated Discharge: 24 - 48 hours
Subjective/Interval History
-
Date of Service: December 14, 2023
Objective Data
-
Labs:
Laboratory Results
12/14/23
06:29
WBC 9.7
Hgb 9.6 L
Hct 28.9 L
Plt Count 233
Sodium 140
Potassium 4.2
Chloride 109 H
Carbon Dioxide 23
BUN 29 H
Creatinine 0.9
Glucose 86
Calcium 8.5
Vital Signs:
Vital Signs
Temp Pulse Resp BP Pulse Ox
97.7 F 95 16 110/75 98
12/14/23 07:00 12/14/23 12:11 12/14/23 07:00 12/14/23 11:10 12/14/23 11:10
I&O
12/13/23 12/14/23 12/15/23
06:59 06:59 06:59
Intake Total 600 / 600 480 / 480
Output Total 800 / 800 1050 / 1050
Balance -200 / -200 -570 / -570
Physical Exam
-
General: No Apparent Distress
HEENT: Moist Mucous Membranes
Respiratory: Clear to Auscultation
Cardiac: Regular Rhythm and S1/S2; Negative Murmur, Rub or Gallop
GI: Soft, Nontender, Nondistended and Normal Bowel Sounds; Negative Organomegaly
Genito-urinary: Martin (With bloodstained urine)
Musculoskeletal: No Edema
Skin: Negative Rash
Neuro: Awake, Alert, Oriented and Nonfocal/Grossly Intact
--- NOTE | 2023-12-14 15:45 | CM ---
MD spoke with family and consult placed for Hospice
Referral placed in care port.for hospice.
LM with [facility] for [facility] .
PLan Possible home with Hospice
[2023-12-14] MEDS: LIPITOR 20 MG PO (17:08)
[2023-12-15] MEDS: SYNTHROID 100 MCG PO (05:21)
[2023-12-15 07:00] VITALS: BP 121/74
--- NOTE | 2023-12-15 09:31 | HOSPNOTE ---
Spoke with spouse and explained hospice and the philosophy. Spouse is in agreement and would like the patient home today. No equipment is needed at this time, an ambulance will be needed for transport and OOH DNR will be needed on chart. Once
patient is home we will sign patient onto hospice services. Case management and attending aware of plan.
--- NOTE | 2023-12-15 10:13 | CM ---
Spoke with [facility] who spoke with who requested home today with Hopsice.
No equipment needed at this time.
MD notified to complete DNR OOH form.
Family requested ambulance Med nec form completed.
confirmed address and 1 step to enter.
IMM reviewed with she agrees with dc.
PLAN Home with Hospice
[2023-12-15] MEDS: CARDIZEM CD PO (10:23)
[2023-12-15] MEDS: FLOMAX PO (10:23)
[2023-12-15] MEDS: LOW STRENGTH ASPIRIN PO (10:24)
[2023-12-15] MEDS: MUCINEX PO (10:24)
[2023-12-15] MEDS: KCL PO (10:24)
[2023-12-15] MEDS: PROTONIX PO (10:24)
[2023-12-15] MEDS: PROSCAR PO (10:24)
--- NOTE | 2023-12-15 10:51 | W.DS.TRANS ---
DC Summary - Criminalist Technician
-
Discharge Instructions:
Sleep Apnea Risk Intermediate
Discharge Diagnosis/Procedures Impression:
Submassive Pulmonary embolism
Dark stool
Conditions prior to admission:
Severe aortic stenosis
�Outpatient echocardiogram with preserved EF and
severe AAS.
Permanent atrial fibrillation
� Status post watchman.
Coronary artery disease with prior history of
stent.
PPM in place.
History of CVA in
BPH
Hypothyroidism on replacement
Dyslipidemia
GERD
Chronic ambulatory dysfunction
mild hematuria
Acute urinary retention
hx of BPH
Non ischemic myocardial injury
Moderate Malnutrition
Diet No restrictions
Instructions:
Stand-Alone Forms:
Changes to Home Medications: Yes
Discharge Medications:
DC Medications w/original date entered in Influx
atorvastatin 20 mg tablet (Lipitor) 20 mg PO HS High Cholesterol 12/03/23
digoxin 125 mcg (0.125 mg) tablet 125 mcg PO DAILY Heart Disease/Condition 12/03/23
diltiazem HCl 300 mg capsule,extended release 24 hr (Cardizem CD) 300 mg PO DAILY Heart Disease/Condition 12/03/23
ferrous sulfate 325 mg (65 mg iron) tablet (Iron (ferrous sulfate)) 325 mg PO BID Supplement 12/03/23
finasteride 5 mg tablet (Proscar) 5 mg PO DAILY Urinary Issue 12/03/23
furosemide 20 mg tablet (Lasix) 20 mg PO DAILY takes 40mg on wednesdays12/03/23
omeprazole 20 mg tablet,delayed release 40 mg PO DAILY GERD 12/03/23
potassium chloride 20 mEq tablet,extended release 40 meq PO USEASDIRECTD Supplement 12/03/23
levothyroxine 100 mcg tablet 100 mcg PO DAILY Thyroid 12/13/23
metoprolol succinate 25 mg tablet,extended release 24 hr 25 mg PO DAILY Blood Pressure 12/13/23
multivitamin-ferrous fumarate-folic acid 18 mg-400 mcg tablet (Centrum) 1 tab PO DAILY Supplement 12/13/23
omega-3 fatty acids 500 mg capsule 1,000 mg PO DAILY Supplement 12/13/23
Home Medication Changes
Patient being discharge with initiation of home hospice
Pending Results: No
--- NOTE | 2023-12-15 11:35 | PTCARENOTE ---
Pt tolerated procedure well. Pt received 14 Fr Martin cath indwelling draining yellow with sediment . Procedure was attempted twice. Will continue to monitor
[2023-12-15] MEDS: LANOXIN 125 MCG PO (11:38)
== END 2023-12-15 13:59 | disposition hospice, home (50) | DRG 175 ==
LOC: 3 WEST ACU 17:12
PROVIDERS: Emergency Medicine; Hospitalist; Internal Medicine; Nurse Practitioner Family; ADMITTING PHYSICIAN Internal Medicine; CONSULT PHYSICIAN Specialist; CONSULT PHYSICIAN Urology; EMERGENCY PHYSICIAN Emergency Medicine; FAMILY PHYSICIAN Family Medicine; OTHER PHYSICIAN Internal Medicine Cardiovascular Disease
DX: I26.99 Other pulmonary embolism without acute cor pulmonale (principal); I50.31 Acute diastolic (congestive) heart failure; I48.21 Permanent atrial fibrillation; I5A Non-ischemic myocardial injury (non-traumatic); E44.0 Moderate protein-calorie malnutrition; K92.1 Melena; T83.83XA Hemorrhage due to genitourinary prosthetic devices, implants and grafts, initial encounter; D68.32 Hemorrhagic disorder due to extrinsic circulating anticoagulants; D62 Acute posthemorrhagic anemia; J90 Pleural effusion, not elsewhere classified; I11.0 Hypertensive heart disease with heart failure; R31.0 Gross hematuria; T45.515A Adverse effect of anticoagulants, initial encounter; I27.82 Chronic pulmonary embolism; R26.89 Other abnormalities of gait and mobility; E78.5 Hyperlipidemia, unspecified; I25.10 Atherosclerotic heart disease of native coronary artery without angina pectoris; I35.0 Nonrheumatic aortic (valve) stenosis; I49.5 Sick sinus syndrome; E03.9 Hypothyroidism, unspecified; K21.9 Gastro-esophageal reflux disease without esophagitis; N40.1 Benign prostatic hyperplasia with lower urinary tract symptoms; R33.8 Other retention of urine; R62.7 Adult failure to thrive; Z95.0 Presence of cardiac pacemaker; Z95.818 Presence of other cardiac implants and grafts; Z86.73 Personal history of transient ischemic attack (TIA), and cerebral infarction without residual deficits; Z95.5 Presence of coronary angioplasty implant and graft; Z79.890 Hormone replacement therapy; Z79.82 Long term (current) use of aspirin; Z79.01 Long term (current) use of anticoagulants; Z68.20 Body mass index [BMI] 20.0-20.9, adult; Z11.52 Encounter for screening for COVID-19; Y73.2 Prosthetic and other implants, materials and accessory gastroenterology and urology devices associated with adverse incidents
CPT/HCPCS: 71045; 71046; 71275; 76770; 80048; 80053; 80162; 81003; 81015; 83735; 83880; 84145; 84484; 85014; 85018; 85025; 85027; 85730; 87086; 87811; 93005; 93306; 93970; 94640; 96365; 96375; 97116; 97163; 97166; 97530; 97535; 99291; Q9967